=== PATIENT | female | born 1990 | race Caucasian/White ===

== ENCOUNTER 2018-03-25 13:26 | Emergency (ER) | payer MEDICAID, OTHER ==
[2018-03-25 13:37] VITALS: BP 99/64
--- NOTE | 2018-03-25 14:50 | XRAY Report ---
Procedure Date: 03/25/2018 Accession Number: [id number] / [id number] Procedure: XR - Ankle 3 View LT CPT Code: FULL RESULT: EXAM: LEFT ANKLE RADIOGRAPHY EXAM DATE: 03/25/2018 02:29 PM. CLINICAL HISTORY: Pain since a fall one day ago. COMPARISON: None. TECHNIQUE: 3 views. FINDINGS: Bones: Normal. No fractures or bone lesions. Joints: Normal. No effusion. No subluxations. The ankle mortise is normally aligned. Soft Tissues: Moderate edema over the lateral malleolus. IMPRESSION: No acute bony abnormality. RADIA
--- NOTE | 2018-03-25 14:59 | ED Physician Documentation ---
History of Present Illness - Stated complaint Stated Complaint: LEFT ANKLE SWELLING - Chief complaint Chief Complaint: Ext Problem - Additonal information Additional information: 27 y/o f on couamdin 10/29 mechanical heart valve / congenital heart was at bedside for her grandma on hospice and needed to salter out of the room and jumped over the bed and rolled her L ankle and hear a pop can bear weight slightly in the ER denies preg no other injury Review of Systems : denies: Now EGA Musculoskeletal: reports: Pain with weight bearing Endocrine: reports: Easy bruising / bleeding PD PAST MEDICAL HISTORY - Present Medications Home Medications: Ambulatory Orders Medication Instructions Recorded Confirmed Lisinopril 5 mg PO 03/25/18 03/25/18 Sertraline HCl [Zoloft] 100 mg PO 03/25/18 Warfarin [Coumadin] 5 mg PO 1400 03/25/18 03/25/18 - Allergies Allergies/Adverse Reactions: Allergies Allergy/AdvReac Type Severity Reaction Status Date / Time ceftriaxone [From Rocephin] Allergy Hives Verified 03/25/18 13:37 chlorhexidine Allergy Hives Verified 03/25/18 13:39 morphine Allergy Hives Verified 03/25/18 13:39 vancomycin Allergy Hives Verified 03/25/18 13:39 salmeterol [From Serevent] AdvReac Unknown Verified 03/25/18 13:38 PD ED PE NORMAL - Vitals Vital signs reviewed: Yes - Cardiac Cardiac: RRR - Respiratory Respiratory: No respiratory distress, Clear bilaterally - Extremities Extremities: Other (L ankle TTP lateral mall, no 5th MT or foot pain, no prox tib fib pain, MSV intact) Results - Vitals Vitals: Vital Signs - 24 hr 03/25/18 13:34 Temperature 36.4 C L Heart Rate 86 Respiratory 18 Rate Blood Pressure 99/64 O2 Saturation 96 Oxygen O2 Source Room air PD MEDICAL DECISION MAKING - Sepsis Event Vital Signs: Vital Signs - 24 hr 03/25/18 13:34 Temperature 36.4 C L Heart Rate 86 Respiratory 18 Rate Blood Pressure 99/64 O2 Saturation 96 Oxygen O2 Source Room air Departure - Departure Disposition: 01 Home, Self Care Clinical Impression: Ankle sprain Qualifiers: Encounter type: initial encounter Involved ligament of ankle: unspecified ligament Laterality: left Qualified Code(s): S93.402A - Sprain of unspecified ligament of left ankle, initial encounter Condition: Good Instructions: ED Sprain Ankle W X Ray Comments: The xray does not show any fractures. Recommend an LYNDSEY wrap ice and elevation for the swelling, crutches as needed to decrease weight bearing stress, and tylenol as needed for the pain It is always possible for a hairline crack not to be visible on initial xrays so if your ankle still hurts too much to bear weight in 2 weeks, please see your PMD for consideration of further imaging
== END 2018-03-25 15:12 | disposition home or self-care (01) ==
LOC: ED 13:26
DX: S93.402A Sprain of unspecified ligament of left ankle, initial encounter (principal); X50.1XXA Overexertion from prolonged static or awkward postures, initial encounter; Y93.39 Activity, other involving climbing, rappelling and jumping off; Z79.01 Long term (current) use of anticoagulants; Z95.2 Presence of prosthetic heart valve
CPT/HCPCS: 99283

== ENCOUNTER 2022-02-09 07:23 | Outpatient (CLI) | payer OTHER ==
[2022-02-09 11:44] LABS: INR 2.4 (0.8-1.2); PT - PROTHROMBIN TIME 27.1 secs (9.9-12.6)
== END 2022-02-09 07:24 | disposition home or self-care (01) ==
LOC: LAB.N 07:23
DX: Z79.01 Long term (current) use of anticoagulants (principal)
CPT/HCPCS: 36415; 85610

== ENCOUNTER 2022-02-18 08:18 | Outpatient (CLI) | payer OTHER ==
[2022-02-18 13:21] LABS: INR 2.2 (0.8-1.2); PT - PROTHROMBIN TIME 24.8 secs (9.9-12.6)
== END 2022-02-18 08:19 | disposition home or self-care (01) ==
LOC: LAB.N 08:18
DX: Z79.01 Long term (current) use of anticoagulants (principal)
CPT/HCPCS: 36415; 85610

== ENCOUNTER 2022-02-25 08:42 | Outpatient (CLI) | payer OTHER ==
[2022-02-25 11:44] LABS: INR 3.1 (0.8-1.2); PT - PROTHROMBIN TIME 34.8 secs (9.9-12.6)
== END 2022-02-25 08:43 | disposition home or self-care (01) ==
LOC: LAB.N 08:42
DX: Z79.01 Long term (current) use of anticoagulants (principal)
CPT/HCPCS: 36415; 85610

== ENCOUNTER 2025-05-24 19:05 | Inpatient (IN) ==
[2025-05-24 19:35] LABS: HCT - HEMATOCRIT 38.3 % (37.0-47.0); HGB - HEMOGLOBIN 12.0 g/dL (12.0-16.0); MEAN PLATELET VOLUME 9.4 fL (7.9-10.8); NRBC ABSOLUTE COUNT (AUTO) 0.00 x10^3/uL; NUCLEATED RED BLOOD CELLS AUTO 0.0 /100WBC; PLT - PLATELET COUNT 244 10^3/uL (130-450); RED CELL DISTRIBUTION WIDTH 15.0 % (12.0-15.0)
--- NOTE | 2025-05-24 19:39 | ED Physician Documentation ---
History of Present Illness Stated complaint Stated Complaint: COUGHING UP BLOOD Chief complaint Chief Complaint: Resp History obtained from History obtained from: Patient History of Present Illness Timing: Prior to arrival Additonal information Additional information: Patient is a 35-year-old female presenting to the emergency department with hemoptysis. Symptoms started this afternoon after she left [facility] for a ANGEL procedure secondary to atrial flutter. She was converted to normal sinus rhythm. She has past medical history remarkable for mechanical valve repair approximately twice and history of endocarditis twice. She notes this afternoon she began to develop chills and felt weak. She notes she is still coming off anesthesia as she had the procedure this afternoon. She began coughing up blood after leaving the hospital. She stated they want to watch her longer but she wanted to return home. Patient is on war farin chronically secondary to her mechanical valve. Unsure of what her last INR was today. She has shortness of breath on arrival and was brought in via EMS. She is speaking in full sentences but saturating at 86% on arrival. No hx of DVT/ PE. Meds/Allgy Home Medications Ambulatory Orders Medication Instructions Recorded Confirmed lisinopril 5 mg tablet 5 mg PO 03/25/18 03/25/18 sertraline 100 mg tablet (Zoloft) 100 mg PO 03/25/18 warfarin 5 mg tablet (Jantoven) 5 mg PO 1400 03/25/18 03/25/18 Allergies Allergies Allergy/AdvReac Type Severity Reaction Status Date / Time ceftriaxone (From Rocephin) Allergy Hives Verified 05/24/25 19:19 chlorhexidine Allergy Hives Verified 05/24/25 19:19 morphine Allergy Hives Verified 05/24/25 19:19 vancomycin Allergy Hives Verified 05/24/25 19:19 salmeterol (From Serevent) AdvReac Unknown Verified 05/24/25 19:19 PFSH Active Problems All Active Problems Ankle sprain (Acute) Medical History Medical History HTN (hypertension) GERD (gastroesophageal reflux disease) Endocarditis Atrial flutter Social History Social History (Updated 05/24/25 @ 19:23 by Mer Moon RN) Smoking Status: Never smoker Do you feel safe in your home environment?: Yes History of physical, verbal, emotional, or financial abuse?: No POLST Patient has POLST: No Exam Exam Vital Signs: Vital Signs x48h Temp Pulse Resp BP Pulse Ox O2 Flow Rate 05/24/25 20:48 97 18 109/69 96 3 05/24/25 19:20 3 05/24/25 19:20 91 L 3 05/24/25 19:15 38.8 C H 101 H 20 105/69 84 L Constitutional Patient appears fatigued, but speaking in full sentences in no acute distress. Results Vitals Vitals: Vital Signs - 24 hr 05/24/25 19:15 05/24/25 19:20 05/24/25 19:20 Temperature 38.8 C H Temperature Source Temporal Artery Scan Pulse Rate 101 H Respiratory Rate 20 Blood Pressure 105/69 O2 Saturation 84 L 91 L Oxygen Delivery Method Nasal Cannula O2 Source Room air Nasal cannula If not protocol: Oxygen Flow, liters/minute 3 3 Pain Intensity 6 05/24/25 20:20 05/24/25 20:48 Temperature Temperature Source Pulse Rate 97 Respiratory Rate 18 Blood Pressure 109/69 O2 Saturation 96 Oxygen Delivery Method O2 Source Nasal cannula If not protocol: Oxygen Flow, liters/minute 3 Pain Intensity 4 Oxygen O2 Source Nasal cannula Labs Labs: Laboratory Tests 05/24/25 05/24/25 05/24/25 19:25 19:26 19:26 WBC 9.6 RBC 4.54 Hgb 12.0 Hct 38.3 MCV 84.4 MCH 26.4 L MCHC 31.3 L RDW 15.0 Plt Count 244 MPV 9.4 Neut # (Auto) 8.7 H Lymph # (Auto) 0.3 L [place] # (Auto) 0.6 Eos # (Auto) 0.0 Baso # (Auto) 0.0 Absolute Nucleated RBC 0.00 Nucleated RBC % 0.0 PT 22.3 H INR 2.0 H Sodium 137 Potassium 3.7 Chloride 107 Carbon Dioxide 23 Anion Gap 7.0 BUN 20 Creatinine 0.8 Estimated GFR (MDRD) 82 L Glucose 109 H Lactic Acid Calcium 9.1 Magnesium 1.8 Total Bilirubin 0.6 AST 18 ALT 16 Alkaline Phosphatase 53 B-Natriuretic Peptide Cancelled 46 Total Protein 7.3 Albumin 4.5 Globulin 2.8 Albumin/Globulin Ratio 1.6 Urine Color Urine Clarity Urine pH Ur Specific [place] Urine Protein Urine Glucose (UA) Urine Ketones Urine Occult Blood Urine Nitrite Urine Bilirubin Urine Urobilinogen Ur Leukocyte Esterase Urine RBC Urine WBC Ur Squamous Epith Cells Urine Bacteria Ur Microscopic Review Urine Culture Comments Urine HCG, Qual Nasal Adenovirus (PCR) NOT DETECTED Nasal B. parapertussis DNA (PCR) NOT DETECTED Nasal Coronavir 229E PCR NOT DETECTED Nasal Coronavir HKU1 PCR NOT DETECTED Nasal Coronavir NL63 PCR NOT DETECTED Nasal Coronavir OC43 PCR NOT DETECTED Nasal Enterovir/Rhinovir PCR NOT DETECTED Nasal Influenza B PCR NOT DETECTED Nasal Influenza A PCR NOT DETECTED Nasal Parainfluen 1 PCR NOT DETECTED Nasal Parainfluen 2 PCR NOT DETECTED Nasal Parainfluen 3 PCR NOT DETECTED Nasal Parainfluen 4 PCR NOT DETECTED Nasal RSV (PCR) NOT DETECTED Nasal B.pertussis DNA PCR NOT DETECTED Nasal C.pneumoniae (PCR) NOT DETECTED Alek Human Metapneumo PCR NOT DETECTED Nasal M.pneumoniae (PCR) NOT DETECTED Nasal SARS-CoV-2 (PCR) NOT DETECTED 05/24/25 05/24/25 19:38 19:47 WBC RBC Hgb Hct MCV MCH MCHC RDW Plt Count MPV Neut # (Auto) Lymph # (Auto) [place] # (Auto) Eos # (Auto) Baso # (Auto) Absolute Nucleated RBC Nucleated RBC % PT INR Sodium Potassium Chloride Carbon Dioxide Anion Gap BUN Creatinine Estimated GFR (MDRD) Glucose Lactic Acid 1.2 Calcium Magnesium Total Bilirubin AST ALT Alkaline Phosphatase B-Natriuretic Peptide Total Protein Albumin Globulin Albumin/Globulin Ratio Urine Color YELLOW Urine Clarity CLEAR Urine pH 6.0 Ur Specific [place] 1.020 Urine Protein NEGATIVE Urine Glucose (UA) NEGATIVE Urine Ketones NEGATIVE Urine Occult Blood SMALL Urine Nitrite NEGATIVE Urine Bilirubin NEGATIVE Urine Urobilinogen 0.2 (NORMAL) Ur Leukocyte Esterase NEGATIVE Urine RBC 0-5 Urine WBC 0-3 Ur Squamous Epith Cells FEW Squamous Urine Bacteria None Seen Ur Microscopic Review INDICATED Urine Culture Comments NOT INDICATED Urine HCG, Qual NEGATIVE Nasal Adenovirus (PCR) Nasal B. parapertussis DNA (PCR) Nasal Coronavir 229E PCR Nasal Coronavir HKU1 PCR Nasal Coronavir NL63 PCR Nasal Coronavir OC43 PCR Nasal Enterovir/Rhinovir PCR Nasal Influenza B PCR Nasal Influenza A PCR Nasal Parainfluen 1 PCR Nasal Parainfluen 2 PCR Nasal Parainfluen 3 PCR Nasal Parainfluen 4 PCR Nasal RSV (PCR) Nasal B.pertussis DNA PCR Nasal C.pneumoniae (PCR) Alek Human Metapneumo PCR Nasal M.pneumoniae (PCR) Nasal SARS-CoV-2 (PCR) PD Medical Decision Making ED course Complexity details: reviewed old records and reviewed results ED course: Patient 35-year-old female presenting to the emergency department with hemoptysis that started today after she was discharged home from after a ANGEL procedure and a cardioversion from atrial flutter. Patient is on warfarin chronically for history of mechanical valve repair. Patient has history of congenital valve. She has no chest pain but is short of breath on arrival as she has saturating at 87% here in the ED and was started on 3 L nasal cannula improving to 93%. She has blood-streaked sputum here in the ED with an INR of 2.0. She denies any other hx or symptoms GI bleeding. EKG was normal sinus rhythm. No previous EKG to compare to. She has no leukocytosis patient meets sepsis criteria with her hypoxia and she is febrile on arrival. IV fluids were started and pending blood cultures and lactic acid at this time. She was started on levofloxacin given significant allergeries and she is on penicillin at baseline. CMP is unremarkable BNP unremarkable UA shows no signs of UTI test is negative respiratory swab returns negative as well. Blood cultures are pending at this time and lactic acid is within normal range. CXR: 1. Bibasilar opacities are suspicious for pneumonia, aspiration, or atelectasis. 2.Right-sided cardiac silhouette. Correlate for known situs inversus or dextrocardia versus labeling error. Discussed with cardiology Dr. Morgan who feels patient Does not need to return to their hospital for further workup at this timeHe feels given symptoms and workup at this time patient can be admitted to the facility. Additionally I have discussed with our hospitalist via telehealth Dr. Everett who would prefer patient have CT angiogram for evaluation after recent ANGEL, hypoxia and being on warfarin in the past. Patient is agreeable with this plan and she is sitting comfortably In the room still on 3 L nasal cannula. I signed out patient to on coming provider. Pending CTA at this time. Discharge Plan Discharge Prescriptions: No Action sertraline [Zoloft] 100 MG tablet 100 mg PO warfarin [Jantoven] 5 MG tablet 5 mg PO 1400 lisinopril 5 MG tablet 5 mg PO Print Language: Pakistani Stand Alone Forms: PCP List
--- OUTSIDE RECORDS SUMMARY | 2025-05-24 19:42 | EXTERNAL MEDICAL SUMMARY RPT | Continuity of Care Document ---
Author Organization [facility] Address [address] [place] [id number] Phone Care Team Providers Care Licensed Optical Dispenser Name Role Phone Unavailable Unavailable Latrell Hoover Unavailable Unavailable Allergies and Intolerances date description facility reaction severity 2025-04-08 13:00:24 [facility] (no reactio n) Mild 2025-04-23 13:55:28 [facility] (no reactio n) Mild 2025-04-08 13:00:24 [facility] (no reactio n) (no severity) 2025-04-23 13:55:28 [facility] (no reactio n) (no severity) 2025-04-08 13:00:24 [facility] (no reactio n) Moderate 2025-04-23 13:55:28 [facility] (no reactio n) Moderate 2025-04-08 13:00:24 [facility] (no reactio n) Moderate 2025-04-23 13:55:28 [facility] (no reactio n) Moderate 2025-04-08 13:00:24 [facility] (no reactio n) Severe 2025-04-23 13:55:28 [facility] (no reactio n) Severe 2025-04-08 13:00:24 [facility] (no reactio n) (no severity) 2025-04-23 13:55:28 [facility] (no reactio n) (no severity) Problems date description facility 2025-04-08 00:00 Electrocardiography showing paced rhythm with electrical capture [facility] 2025-04-24 00:00 Palpitations [facility] 2025-04-24 00:00 History of congenital heart dis ease [facility] 2025-04-24 00:00 Presence of cardiac pacemaker I [facility] Procedures date description facility 2025-04-23 00:00 X-ray of chest, single [facility] Results/Labs test date facility value unit notes Result panel 1 Specimen collection (procedure) (no date) [facility] (missing) (missing) (missing) Result panel 2 Specimen collection (procedure) (no date) [facility] (missing) (missing) (missing) Result panel 3 Specimen collection (procedure) (no date) [facility] (missing) (missing) (missing) Result panel 4 Specimen collection (procedure) (no date) [facility] (missing) (missing) (missing) Result panel 5 Specimen collection (procedure) (no date) [facility] (missing) (missing) (missing) Result panel 6 Specimen collection (procedure) (no date) [facility] (missing) (missing) (missing) Result panel 7 Specimen collection (procedure) (no date) [facility] (missing) (missing) (missing) Result panel 8 Specimen collection (procedure) (no date) [facility] (missing) (missing) (missing) Result panel 9 Specimen collection (procedure) (no date) [facility] (missing) (missing) (missing) Result panel 10 Specimen collection (procedure) (no date) [facility] (missing) (missing) (missing) Result panel 11 Specimen collection (procedure) (no date) [facility] (missing) (missing) (missing) Result panel 12 Specimen collection (procedure) (no date) [facility] (missing) (missing) (missing) Result panel 13 Specimen collection (procedure) (no date) [facility] (missing) (missing) (missing) Result panel 14 Specimen collection (procedure) (no date) [facility] (missing) (missing) (missing) Result panel 15 Specimen collection (procedure) (no date) [facility] (missing) (missing) (missing) Result panel 16 Specimen collection (procedure) (no date) [facility] (missing) (missing) (missing) Result panel 17 Specimen collection (procedure) (no date) [facility] (missing) (missing) (missing) Result panel 18 Specimen collection (procedure) (no date) [facility] (missing) (missing) (missing) Result panel 19 Specimen collection (procedure) (no date) [facility] (missing) (missing) (missing) Result panel 20 Specimen collection (procedure) (no date) [facility] (missing) (missing) (missing) Result panel 21 Specimen collection (procedure) (no date) [facility] (missing) (missing) (missing) Result panel 22 Specimen collection (procedure) (no date) [facility] (missing) (missing) (missing) Result panel 23 Specimen collection (procedure) (no date) [facility] (missing) (missing) (missing) Result panel 24 Specimen collection (procedure) (no date) [facility] (missing) (missing) (missing) Result panel 25 Specimen collection (procedure) (no date) [facility] (missing) (missing) (missing) Result panel 26 Specimen collection (procedure) (no date) [facility] (missing) (missing) (missing) Result panel 27 Specimen collection (procedure) (no date) [facility] (missing) (missing) (missing) Result panel 28 Specimen collection (procedure) (no date) [facility] (missing) (missing) (missing) Result panel 29 Specimen collection (procedure) (no date) [facility] (missing) (missing) (missing) Result panel 30 Specimen collection (procedure) (no date) [facility] (missing) (missing) (missing) Result panel 31 Specimen collection (procedure) (no date) [facility] (missing) (missing) (missing) Result panel 32 Specimen collection (procedure) (no date) [facility] (missing) (missing) (missing) Result panel 33 Specimen collection (procedure) (no date) [facility] (missing) (missing) (missing) Result panel 34 Specimen collection (procedure) (no date) [facility] (missing) (missing) (missing) Result panel 35 Specimen collection (procedure) (no date) [facility] (missing) (missing) (missing) Result panel 36 Specimen collection (procedure) (no date) [facility] (missing) (missing) (missing) Result panel 37 Specimen collection (procedure) (no date) [facility] (missing) (missing) (missing) Result panel 38 Specimen collection (procedure) (no date) [facility] (missing) (missing) (missing) Result panel 39 Specimen collection (procedure) (no date) [facility] (missing) (missing) (missing) Result panel 40 Specimen collection (procedure) (no date) [facility] (missing) (missing) (missing) Result panel 41 Specimen collection (procedure) (no date) [facility] (missing) (missing) (missing) Result panel 42 Specimen collection (procedure) (no date) [facility] (missing) (missing) (missing) Result panel 43 Specimen collection (procedure) (no date) [facility] (missing) (missing) (missing) Result panel 44 Specimen collection (procedure) (no date) [facility] (missing) (missing) (missing) Result panel 45 Specimen collection (procedure) (no date) [facility] (missing) (missing) (missing) Result panel 46 White blood cell count 2025-04-23 18:20:07 [facility] 7 .0 X10^3/uL (missing) Result panel 47 Red blood cell count 2025-04-23 18:20:07 [facility] 4.5 3 X10^6/uL (missing) Result panel 48 Hemoglobin 2025-04-23 18:20:07 [facility] 12.5 g/d L (missing) Result panel 49 Hematocrit 2025-04-23 18:20:07 [facility] 37.8 % (missing) Result panel 50 MCV (mean corpuscular volume ) determination 2025-04-23 18:20:07 [facility] 83.4 fL (mis sing) Result panel 51 Mean corpuscular hemoglobin (MCH) determination 2025-04-23 18:20:07 [facility] 27.6 PG (missing) Result panel 52 Mean corpuscular hemoglobin concentration (MCHC) determination 2025-04-23 18:20:07 [facility] 33.1 % (mis sing) Result panel 53 Red cell distribution width determination 2025-04-23 18:20:07 [facility] 15.5 % (mis sing) Result panel 54 Platelet count 2025-04-23 18:20:07 [facility] 273 X10^3/uL (missing) Result panel 55 Automated neutrophil % 2025-04-23 18:20:07 [facility] 6 8.9 % (missing) Result panel 56 Automated lymphocyte % 2025-04-23 18:20:07 [facility] 1 5.6 % (missing) Result panel 57 Automated monocyte % 2025-04-23 18:20:07 [facility] 10. 0 % (missing) Result panel 58 Automated eosinophil % 2025-04-23 18:20:07 [facility] 4 .7 % (missing) Result panel 59 Automated basophil % 2025-04-23 18:20:07 [facility] 0.8 % (missing) Result panel 60 Absolute neutrophil count 2025-04-23 18:20:07 [facility] l 4800 /uL (missing) Result panel 61 Absolute lymphocyte count 2025-04-23 18:20:07 [facility] 1100 /uL (missing) Result panel 62 Automated blood monocyte count 2025-04-23 18:20:07 [facility] spital 700 /uL (missing) Result panel 63 Automated eosinophil count 2025-04-23 18:20:07 [facility] 300 /uL (missing) Result panel 64 Automated basophil count 2025-04-23 18:20:07 [facility] 100 /uL (missing) Result panel 65 Serum prothrombin time 2025-04-23 18:20:07 [facility] 2 9.4 SECONDS (missing) Result panel 66 INR in Platelet poor plasma by Coagulation assay 2025-04-23 18:20:07 [facility] 2.7 (missing) (miss ing) Result panel 67 Thromboplastin time, partial (PTT); plasma or whole blood 2025-04-23 18:20:07 [facility] 42 SE CONDS (missing) Result panel 68 Creatine kinase [Enzymatic activity/volume] in Serum or Plasma 2025-04-23 18:20:07 [facility] 32 U/L ([facility]) Result panel 69 Natriuretic peptide.B prohormone N-Terminal [Mass/volume] in Serum or Plasma 2025-04-23 18:20:07 [facility] 359 pg/mL ([facility]) Result panel 70 Sodium [Moles/volume] in Serum or Plasma 2025-04-23 18:20:07 [facility] 138 mmol/L ([facility]) Result panel 71 Potassium [Moles/volume] in Serum or Plasma 2025-04-23 18:20:07 [facility] 4.6 mmol/L ([facility]) Result panel 72 Chloride [Moles/volume] in Serum or Plasma 2025-04-23 18:20:07 [facility] 107 mmol/L ([facility]) Result panel 73 Carbon dioxide, total [Moles/volume] in Serum or Plasma 2025-04-23 18:20:07 [facility] 21 mmol/L ([facility]) Result panel 74 Urea nitrogen [Mass/volume] in Serum or Plasma 2025-04-23 18:20:07 [facility] 21 mg/dL ([facility]) Result panel 75 Creatinine [Mass/volume] in Serum or Plasma 2025-04-23 18:20:07 [facility] 0.83 mg/dL ([facility]) Result panel 76 Glomerular filtration rate (GFR) estimation 2025-04-23 18:20:07 [facility] > 60 mL/min (missing) (missing) Result panel 77 BUN/creatinine ratio 2025-04-23 18:20:07 [facility] 25. 3 (missing) (missing) Result panel 78 Glucose [Mass/volume] in Ser um or Plasma 2025-04-23 18:20:07 [facility] 96 mg/dL (miss ing) Result panel 79 Calcium [Mass/volume] in Serum or Plasma 2025-04-23 18:20:07 [facility] 9.2 mg/dL [facility] Result panel 80 Magnesium [Mass/volume] in Serum or Plasma 2025-04-23 18:20:07 [facility] 2.2 mg/dL ([facility] Result panel 81 Bilirubin.total [Mass/volume ] in Serum or Plasma 2025-04-23 18:20:07 [facility] 0.4 mg/dL (missing) Result panel 82 Aspartate aminotransferase [Enzymatic activity/volume] in Serum or Plasma 2025-04-23 18:20:07 [facility] 30 IU/L [facility] Result panel 83 Alanine aminotransferase [Enzymatic activity/volume] in Serum or Plasma 2025-04-23 18:20:07 [facility] 23 IU/L [facility] Result panel 84 Alkaline phosphatase [Enzyma tic activity/volume] in Serum or Plasma 2025-04-23 18:20:07 [facility] 61 U/L (miss ing) Result panel 85 Protein total ser/plas 2025-04-23 18:20:07 [facility] 8 .2 g/dL (missing) Result panel 86 Albumin [Mass/volume] in Ser um or Plasma 2025-04-23 18:20:07 [facility] 4.7 g/dL (miss ing) Result panel 87 Globulin [Mass/volume] in Serum by calculation 2025-04-23 18:20:07 [facility] 3.5 g/dL (missing) Result panel 88 Albumin/Globulin [Mass Ratio] in Serum or Plasma 2025-04-23 18:20:07 [facility] 1.3 (miss ing) (missing) Result panel 89 Lipase [Enzymatic activity/volume] in Serum or Plasma 2025-04-23 18:20:07 [facility] 82 U/L (miss ing) Result panel 90 Basophils Percent Auto 2025-04-23 19:[address] [place] [address] 0.8 % (missing ) Monocytes Percent Auto 2025-04-23 19:[address] [place] [address] 10.0 % (missing ) Basophils Absolute Auto 2025-04-23 19: [facility] 100 /ul (missing ) Lymphocytes Absolute Auto 2025-04-23 19:[address] [place] [address] 1100 /ul (missing ) Hemoglobin 2025-04-23 19:[address] [place] [address] 12.5 g/dl (missing) Red Cell Distribution Width 2025-04-23 19:[address] [place] [address] 15.5 % (missing ) Lymphocytes Percent Auto 2025-04-23 19:[address] [place] [address] 15.6 % (missing ) INR 2025-04-23 19:[address] [place] [address] 2.7 (missin g) (missing) Mean Corpuscular Hemoglobin 2025-04-23 19:[address] [place] [address] 27.6 pg (missing ) Platelet Count 2025-04-23 19:[address] [place] [address] 273 x1 0 3/ul (missing) Prothrombin Time 2025-04-23:[address] [place] [address] 29.4 seconds Comment If patient is on warfarin Eosinophils Absolute Auto 2025-04-23:[address] [place] [address] 300 /ul (missing ) Mean Corpuscular HGB Conc 2025-04-23 19:[address] [place] [address] 33.1 % (missing ) Hematocrit 2025-04-23 19:[address] [place] [address] 37.8 % (missing) Red Blood Cell Count 2025-04-23 19:[address] [place] [address] 4.53 x10 6/ul (missing) Eosinophils Percent Auto 2025-04-23 19:[address] [place] [address] 4.7 % (missing ) PTT Partial Thromboplastin Daron 2025-04-23 19:[address] [place] [address] 42 seconds Co mment If patient is on warfarin Adjunctive to Coronary Thrombosis Heparin (0.1 - 0.3 UI/mL) = 40.8 - 62.7 seconds Heparin (0.3 - 0.7 UI/mL) = 62.7 - 106.4 seconds. Neutrophils Absolute Auto 2025-04-23:[address] [place] [address] 4800 /ul (missing ) Neutrophils Percent Auto 2025-04-23 19:[address] [place] [address] 68.9 % (missing ) White Blood Cell Count 2025-04-[address] [place] [address] 7.0 x10 3/ul (missing ) Monocytes Absolute Auto 2025-04-23 19:[address] [place] [address] 700 /ul (missing ) Mean Corpuscular Volume 2025-04-23 19:00 [facility] 83.4 fl (missing ) Result panel 91 Estimated Glomerular Filt Rate 2025-04-23 19:[address] [place] [address] > 60 ml/min Reported eGFR is based the CKD-EPI 2020 equation that does not use a race coefficient. An eGFR below 60 mL/min/1.73m2 suggests that some kidney damage has occurred, and indicative of chronic kidney disease if persisting greater than 3 months. An eGFR less than 15 is indicative of kidney failure. Bilirubin Total 2025-04-23 19:[address] [place] [address] 0.4 mg/dl (missing) Creatinine 2025-04-23 19:[address] [place] [address] 0.83 mg/dl (missing) Albumin Globulin Ratio 2025-04-23 19:[address] [place] [address] 1.3 (missing) (missing) Chloride 2025-04-23 19:[address] [place] [address] 107 mmol/l (missing) Sodium 2025-04-23 19:[address] [place] [address] 138 mmol/l Physician Instructions if pt has history of CHF Magnesium 2025-04-23 19:[address] [place] [address] 2.2 mg/dl Physician Instructions if pt has history of CHF Blood Urea Nitrogen 2025-04-23 19:[address] [place] [address] 21 mg/dl (missing) Carbon Dioxide 2025-04-23 19:[address] [place] [address] 21 mmol/l (missing) Alanine Aminotransferase 2025-04-23 19:[address] [place] [address] 23 iu/l (missing) BUN Creatinine Ratio 2025-04-23 19:[address] [place] [address] 25.3 (missing) (missing) Globulin 2025-04-23 19:[address] [place] [address] 3.5 g/dl (missing) Aspartate Aminotransferase 2025-04-23 19:[address] [place] [address] 30 iu/l (missing) Creatine Kinase 2025-04-23 19:[address] [place] [address] 32 u/l Physician Instructions if pt has history of CHF Potassium 2025-04-23 19:[address] [place] [address] 4.6 mmol/l (missing) Albumin 2025-04-23 19:[address] [place] [address] 4.7 g/dl (missing) Alkaline Phosphatase 2025-04-23 19:[address] [place] [address] 61 u/l (missing) Total Protein 2025-04-23 19:[address] [place] [address] 8.2 g/dl (missing) Lipase 2025-04-23 19:[address] [place] [address] 82 u/l Physician Instructions if pt has history of CHF Calcium 2025-04-23 19:05 [facility] 9.2 mg/dl (missing) Glucose 2025-04-23 19:05 [facility] 96 mg/dl (missing) Result panel 92 Estimated Glomerular Filt Rate 2025-04-23 19:13 [facility] > 60 ml/min Reported eGFR is based the CKD-EPI 2020 equation that does not use a race coefficient. An eGFR below 60 mL/min/1.73m2 suggests that some kidney damage has occurred, and indicative of chronic kidney disease if persisting greater than 3 months. An eGFR less than 15 is indicative of kidney failure. Troponin I 2025-04-23:13 [facility] 0.018 ng/ml Social History date description facility 2025-04-08 00:00 Never smoked tobacco (finding) [facility] Vital Signs date measurement value units 2025-04-08 00:00 BMI 25.7 kg/m2 2025-04-08 00:00 BP_diastolic 55 mmHg 2025-04-08 00:00 BP_systolic 106 mmHg 2025-04-08 00:00 heart_rate 72 /min 2025-04-08 00:00 height_metric 160.02 cm 2025-04-08 00:00 height_standard 63 in 2025-04-08 00:00 o2_saturation 97 % 2025-04-08 00:00 respiration_rate 16 /min 2025-04-08 00:00 temperature_metric 36.56 C 2025-04-08 00:00 temperature_standard 97.8 F 2025-04-08 00:00 weight_metric 65.77 kg 2025-04-08 00:00 weight_standard 145 lb 2025-04-23 00:00 BMI 25.7 kg/m2 2025-04-23 00:00 BP_diastolic 71 mmHg 2025-04-23 00:00 BP_systolic 116 mmHg 2025-04-23 00:00 height_metric 160.02 cm 2025-04-23 00:00 height_standard 63 in 2025-04-23 00:00 temperature_metric 37.06 C 2025-04-23 00:00 temperature_standard 98.7 F 2025-04-23 00:00 weight_metric 65.77 kg 2025-04-23 00:00 weight_standard 145 lb 2025-04-24 00:00 heart_rate 71 /min 2025-04-24 00:00 o2_saturation 95 % 2025-04-24 00:00 respiration_rate 20 /min
[2025-05-24 19:47] LABS: INR 2.0 (0.8-1.2); PT - PROTHROMBIN TIME 22.3 secs (9.9-12.6)
[2025-05-24 19:49] LABS: ALT ALANINE AMINOTRANSFERASE 16.0 IU/L (10-60); AST ASPARTATE AMINOTRANSFERASE 18.0 IU/L (10-42); BUN - BLOOD UREA NITROGEN 20.0 mg/dL (6-20); CARBON DIOXIDE - CO2 23.0 mmol/L (21-32); CREATININE 0.8 mg/dL (0.6-1.3); GFR - MDRD 82.0 (>89)
[2025-05-24 20:04] LABS: GLUCOSE, URINE (UA) NEGATIVE (NEGATIVE); KETONES,URINE (UA) NEGATIVE (NEGATIVE); OCCULT BLOOD,URINE SMALL (NEGATIVE)
[2025-05-24 20:05] LABS: HCG UR QUAL NEGATIVE
[2025-05-24 20:15] LABS: SQUAMOUS EPITHELIAL CELL,UR FEW Squamous (<= Few)
[2025-05-24] MEDS: ACETAMINOPHEN 325 MG TABLET PO STA (20:20)
[2025-05-24] MEDS: SODIUM CHLORIDE 0.9% 1,000 ML IV STA (20:21)
--- NOTE | 2025-05-24 20:21 | XRAY Report ---
PROCEDURE: XR Chest 2V INDICATIONS: cough, hemoptysis, sob TECHNIQUE: 2 views of the chest were acquired. COMPARISON: None. FINDINGS: Surgical changes and devices: A cardiac pacemaker is seen with pulse generator in the right chest. Sternotomy wires and prosthetic heart valve are present. Lungs and pleura: No pleural effusions or pneumothorax. Bibasilar opacities.. Mediastinum: Right-sided cardiac shadow. Bones and chest wall: No suspicious bony lesions. Overlying soft tissues appear unremarkable. IMPRESSION: 1.Bibasilar opacities are suspicious for pneumonia, aspiration, or atelectasis. 2.Right-sided cardiac silhouette. Correlate for known situs inversus or dextrocardia versus labeling error. Reviewed by: Aroldo Oliver MD on 05/24/2025 8:19 PM PDT Approved by: Aroldo Oliver MD on 05/24/2025 8:19 PM PDT Station ID: [id number]
[2025-05-24 21:16] LABS: B. PARAPERTUSSIS- RESP PCR PAN NOT DETECTED; B. PERTUSSIS- RESP PCR PANEL NOT DETECTED; C. PNEUMONIAE- RESP PCR PANEL NOT DETECTED; CORONAVIRUS 229E-RESP PCR NOT DETECTED; CORONAVIRUS HKU1-RESP PCR NOT DETECTED; CORONAVIRUS NL63-RESP PCR NOT DETECTED; CORONAVIRUS OC43-RESP PCR NOT DETECTED; HUMAN METAPNEUMOVIRUS NOT DETECTED; INFLUENZA A- RESP PCR PANEL NOT DETECTED; INFLUENZA B - RESP PCR PANEL NOT DETECTED; M. PNEUMONIAE- RESP PCR PANEL NOT DETECTED; PARAINFLUENZA VIRUS 1 NOT DETECTED; PARAINFLUENZA VIRUS 2 NOT DETECTED; PARAINFLUENZA VIRUS 4 NOT DETECTED; RHINOVIRUS/ENTEROVIRUS NOT DETECTED; RSV- RESP PCR PANEL NOT DETECTED; SARS-CoV-2 -RESP PCR PANEL NOT DETECTED
--- NOTE | 2025-05-24 22:39 | CT Report ---
PROCEDURE: CT Angio Chest INDICATIONS: sob hemoptysis CONTRAST: 70cc omni 300 intravenous TECHNIQUE: After the administration of intravenous contrast, 2 mm axial images were acquired from the pulmonary apices to the posterior costophrenic angles during the arterial phase. In addition, 1 mm lung kernel and 5 mm soft tissue kernel reconstructions were performed. 3-dimensional coronal oblique maximum intensity projection (MIP) reformats, 8 mm axial MIP, and 5 mm coronal and sagittal MPR reformats were then performed through the thorax. For radiation dose reduction, the following was used: automated exposure control, adjustment of mA and/or kV according to patient size. COMPARISON: Chest radiograph 05/24/2025 FINDINGS: Image quality: Excellent. Large vessels: No filling defects within the opacified pulmonary arteries, accounting for motion and contrast timing. No evidence of acute aortic syndrome or aortic aneurysm. Lungs and pleura: Consolidative opacities in the right lower lobe. Bandlike opacities are seen in the left midlung. No pleural effusions. No pneumothorax. No suspicious pulmonary nodules which require follow up. Mediastinum: Dextrocardia. Heart is enlarged. A prosthetic mitral valve is noted. 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 No pericardial effusion. No mediastinal adenopathy by size criteria. Chest wall and lower neck: Thyroid is unremarkable. No axillary or supraclavicular adenopathy by size. A cardiac pacemaker is seen with pulse generator in the right chest. Bones: No aggressive osseous abnormality. Upper Abdomen: Prominent midline liver spanning the upper abdomen. Multiple splenules in the left upper quadrant. Inferior vena cava drains into the azygos vein. IMPRESSION: 1.No acute pulmonary embolus. 2.Right lower lobe opacities are suspicious for pneumonia or aspiration. Bandlike opacities in the left lung have a more chronic appearance and may represent scarring. 3.Heterotaxy syndrome with right-sided heart. Reviewed by: Aroldo Oliver MD on 05/24/2025 10:38 PM PDT Approved by: Aroldo Oliver MD on 05/24/2025 10:38 PM PDT Station ID: [id number]
--- NOTE | 2025-05-24 23:06 | ED Physician Documentation ---
ED Addendum Addendum Addendum: Patient endorsed to me at 11pm shift change pending admission for pneumonia with hypoxic features. patient is stable with antibiotics in place. Disposition admit Condition stable Impression 1. pneumonia 2. hypoxia Discharge Plan Discharge Patient Disposition: [facility] DC/Xfer Condition: Fair Clinical Impression: Cough with hemoptysis, Pneumonia, Hypoxia Prescriptions: No Action sertraline [Zoloft] 100 MG tablet 100 mg PO warfarin [Jantoven] 5 MG tablet 5 mg PO 1400 lisinopril 5 MG tablet 5 mg PO Print Language: [place]ian
--- NOTE | 2025-05-25 01:00 | HISTORY & PHYSICAL EXAMINATION ---
Chief Complaint Chief Complaint Chief Complaint: Cough, Bloody sputum History of Present Illness History Obtained From Exam Limitations: Telemedicine encounter History of Present Illness HPI Comment/Other: Patient is 35 y/o F with complex cardiac history of prior endocarditis and on PENVK daily , history of Mechanical valve replaced many years ago and currently on warfarin with target INR of 2.5 -3.5, history of Migraines and had atrial flutter and patient underwent for elective cardioversion at [facility], upon returning from procedure, during mid way drive patient started coughing, and bloody sputum streaks of blood mixed with sputum and produtive cough with low grade temperature, and feeling of fatigue and tiredness. patient do not remember any aspiration event during [facility]. patient presented to ER and found to have hypoxia and RLL pneumonia, hospitalist is asked to admit patient Meds/Allgy Home Medications Ambulatory Orders Medication Instructions Recorded Confirmed lisinopril 5 mg tablet 5 mg PO DAILY 03/25/1805/25 sertraline 100 mg tablet (Zoloft) 100 mg PO Q24H 03/2505/25/25 warfarin 5 mg tablet (Jantoven) 5 mg PO 1400 03/25/18 05/25/25 metoprolol succinate 50 mg 50 mg PO Q12H 05/25/2504/28 tablet,extended release 24 hr topiramate 50 mg tablet 50 mg PO BID 05/25/25 Allergies Allergies Allergy/AdvReac Type Severity Reaction Status Date / Time ceftriaxone (From Rocephin) Allergy Hives Verified 05/24/25 19:19 chlorhexidine Allergy Hives Verified 05/24/25 19:19 morphine Allergy Hives Verified 05/24/25 19:19 vancomycin Allergy Hives Verified 05/24/25 19:19 salmeterol (From Serevent) AdvReac Unknown Verified 05/24/25 19:19 PFSH Active Problems All Active Problems (Updated 05/24/25 @ 23:49 by Francisca Espinoza MD) Hypoxia (Acute) Pneumonia (Acute) Cough with hemoptysis (Acute) Mechanical heart valve present (Acute) Right lower lobe pneumonia (Acute) Ankle sprain (Acute) Medical History Medical History (Updated 05/24/25 @ 23:49 by Francisca Espinoza MD) HTN (hypertension) GERD (gastroesophageal reflux disease) Endocarditis Atrial flutter Social History Social History Smoking Status: Never smoker Do you feel safe in your home environment?: Yes History of physical, verbal, emotional, or financial abuse?: No POLST Patient has POLST: No Review of Systems Constitutional Reports: Fatigue, Malaise and Weakness Eyes Denies: Blurry vision or Light sensitivity Ears, nose, mouth, and throat Denies: Ear discharge, Hearing loss, Post nasal drip or Neck pain Cardiovascular Reports: palpitations and shortness of breath with exertion; Denies: Irregular heart rate or chest pain Respiratory Reports: Shortness of breath, Cough, Sputum production and Change in phlegm color; Denies: Wheezing, Apnea or Snoring Gastrointestinal Denies: Abdominal pain or Abdominal distention Genitourinary Denies: Painful urination or Urinary frequency Musculoskeletal Denies: Back pain or Neck pain Neurological Denies: General weakness, Focal weakness or Weakness in extremities Endocrine Reports: Fatigue Allergic/Immunologic Denies: Wheezing Exam Exam Vital Signs: Vital Signs x48h Temp Pulse Resp BP Pulse Ox O2 Flow Rate 05/24/25 20:48 97 18 109/69 96 3 05/24/25 19:20 3 05/24/25 19:20 91 L 3 05/24/25 19:15 38.8 C H 101 H 20 105/69 84 L Exam was conducted by tele medicine RN at bedside Gen - Hypoxic on 2-3 L AAOX 3 as per RN Pulmonary - Reduced air entry in RLL , no rhonchi, no wheezing as per engineer [facility] laboratory - RRR, no Murmer no gallop Neuro - Moves all extremities, AAOX 3 non focal exam Conclusion/Plan Problem List (1) Mechanical heart valve present: (2) Right lower lobe pneumonia: (3) HTN (hypertension): Plan - Admit to hospital - Bloody sputum is in setting of Pneumonia - Patient takes Warfarin 7.5 mg on Wednesday and Wednesday rest of week 5 mg daily (5 days in week) - INR is managed by outpatient PCP - Target INR is 2.5-3.5 today subthereapeutic, however considering histroy of bloody sputum start Lovenox - Offered heparin drip patient refused it , - No evidence of active bleeding on CTA chest, CT findings are consistent with Pneumonia - Pneumonia is causing acute hypoxic respiratory failure - Continue current care with supportive oxygen, - Continue Levaquin - Last dose of Lovenox was yesterday at cardioversion - Will continue 1 mg/kg BID - Hold Warfarin for now , will need lovenox bridging - monitor CBC daily, unlikely to cause bleeding complications, as Pneumonia explains bloody sputum - D/w Sandeep in detail - Full code Lab Results 05/24/25 19:26 05/24/25 19:26
--- NOTE | 2025-05-25 07:26 | ED Physician Documentation ---
ED Addendum Addendum Addendum: No acute events overnight. Patient boarded in the ER overnight due to [facility] staff shortages on [facility] but now should be able to moved to the floor this morning. Dr. Saldivar to see. Condition stable Disposition admit Impression 1 hemoptysis Discharge Plan Discharge Patient Disposition: [facility] DC/Xfer Condition: Fair Clinical Impression: Cough with hemoptysis, Pneumonia, Hypoxia Prescriptions: No Action sertraline [Zoloft] 100 MG tablet 100 mg PO Q24H warfarin [Jantoven] 5 MG tablet 5 mg PO 1400 lisinopril 5 MG tablet 5 mg PO DAILY metoprolol succinate 50 mg tablet extended release 24 hr 50 mg PO Q12H topiramate 50 mg tablet 50 mg PO BID Print Language: Tanzanian
[2025-05-25 07:37] LABS: INR 2.3 (0.8-1.2); PT - PROTHROMBIN TIME 25.5 secs (9.9-12.6)
[2025-05-25] MEDS: ENOXAPARIN 80 MG/0.8 ML SYRINGE SUBQ SCH (14:14)
--- OUTSIDE RECORDS SUMMARY | 2025-05-25 16:29 | EXTERNAL MEDICAL SUMMARY RPT | Continuity of Care Document ---
Author Organization [facility] Address [address] [place] [id number] Phone Care Team Providers Care Lunchroom Aide Name Role Phone Unavailable Unavailable Latrell Hoover Unavailable Unavailable Allergies and Intolerances date description facility reaction severity 2025-04-08 13:00:24 [facility] (no reactio n) Mild 2025-04-23 13:55:28 [facility] (no reactio n) Mild 2025-04-08 13:00:24 [facility] (no reactio n) (no severity) 2025-04-23 13:55:28 [facility] (no reactio n) (no severity) 2025-04-08 13:00:24 [facility] (no reactio n) Moderate 2025-04-23 13:55:28 [facility] (no reactio n) Moderate 2025-04-08 13:00:24 [facility] (no reactio n) Moderate 2025-04-23 13:55:28 [facility] (no reactio n) Moderate 2025-04-08 13:00:24 [facility] (no reactio n) Severe 2025-04-23 13:55:28 [facility] (no reactio n) Severe 2025-04-08 13:00:24 [facility] (no reactio n) (no severity) 2025-04-23 13:55:28 [facility] (no reactio n) (no severity) Problems date description facility 2025-04-08 00:00 Electrocardiography showing paced rhythm with electrical capture [facility] 2025-04-24 00:00 Palpitations [facility] 2025-04-24 00:00 History of congenital heart dis ease [facility] 2025-04-24 00:00 Presence of cardiac pacemaker I [facility] Procedures date description facility 2025-04-23 00:00 X-ray of chest, single view [facility] Results/Labs test date facility value unit notes Result panel 1 Specimen collection (procedure) (no date) [facility] (missing) (missing) (missing) Result panel 2 Specimen collection (procedure) (no date) [facility] (missing) (missing) (missing) Result panel 3 Specimen collection (procedure) (no date) [facility] (missing) (missing) (missing) Result panel 4 Specimen collection (procedure) (no date) [facility] (missing) (missing) (missing) Result panel 5 Specimen collection (procedure) (no date) [facility] (missing) (missing) (missing) Result panel 6 Specimen collection (procedure) (no date) [facility] (missing) (missing) (missing) Result panel 7 Specimen collection (procedure) (no date) [facility] (missing) (missing) (missing) Result panel 8 Specimen collection (procedure) (no date) [facility] (missing) (missing) (missing) Result panel 9 Specimen collection (procedure) (no date) [facility] (missing) (missing) (missing) Result panel 10 Specimen collection (procedure) (no date) [facility] (missing) (missing) (missing) Result panel 11 Specimen collection (procedure) (no date) [facility] (missing) (missing) (missing) Result panel 12 Specimen collection (procedure) (no date) [facility] (missing) (missing) (missing) Result panel 13 Specimen collection (procedure) (no date) [facility] (missing) (missing) (missing) Result panel 14 Specimen collection (procedure) (no date) [facility] (missing) (missing) (missing) Result panel 15 Specimen collection (procedure) (no date) [facility] (missing) (missing) (missing) Result panel 16 Specimen collection (procedure) (no date) [facility] (missing) (missing) (missing) Result panel 17 Specimen collection (procedure) (no date) [facility] (missing) (missing) (missing) Result panel 18 Specimen collection (procedure) (no date) [facility] (missing) (missing) (missing) Result panel 19 Specimen collection (procedure) (no date) [facility] (missing) (missing) (missing) Result panel 20 Specimen collection (procedure) (no date) [facility] (missing) (missing) (missing) Result panel 21 Specimen collection (procedure) (no date) [facility] (missing) (missing) (missing) Result panel 22 Specimen collection (procedure) (no date) [facility] (missing) (missing) (missing) Result panel 23 Specimen collection (procedure) (no date) [facility] (missing) (missing) (missing) Result panel 24 Specimen collection (procedure) (no date) [facility] (missing) (missing) (missing) Result panel 25 Specimen collection (procedure) (no date) [facility] (missing) (missing) (missing) Result panel 26 Specimen collection (procedure) (no date) [facility] (missing) (missing) (missing) Result panel 27 Specimen collection (procedure) (no date) [facility] (missing) (missing) (missing) Result panel 28 Specimen collection (procedure) (no date) [facility] (missing) (missing) (missing) Result panel 29 Specimen collection (procedure) (no date) [facility] (missing) (missing) (missing) Result panel 30 Specimen collection (procedure) (no date) [facility] (missing) (missing) (missing) Result panel 31 Specimen collection (procedure) (no date) [facility] (missing) (missing) (missing) Result panel 32 Specimen collection (procedure) (no date) [facility] (missing) (missing) (missing) Result panel 33 Specimen collection (procedure) (no date) [facility] (missing) (missing) (missing) Result panel 34 Specimen collection (procedure) (no date) [facility] (missing) (missing) (missing) Result panel 35 Specimen collection (procedure) (no date) [facility] (missing) (missing) (missing) Result panel 36 Specimen collection (procedure) (no date) [facility] (missing) (missing) (missing) Result panel 37 Specimen collection (procedure) (no date) [facility] (missing) (missing) (missing) Result panel 38 Specimen collection (procedure) (no date) [facility] (missing) (missing) (missing) Result panel 39 Specimen collection (procedure) (no date) [facility] (missing) (missing) (missing) Result panel 40 Specimen collection (procedure) (no date) [facility] (missing) (missing) (missing) Result panel 41 Specimen collection (procedure) (no date) [facility] (missing) (missing) (missing) Result panel 42 Specimen collection (procedure) (no date) [facility] (missing) (missing) (missing) Result panel 43 Specimen collection (procedure) (no date) [facility] (missing) (missing) (missing) Result panel 44 Specimen collection (procedure) (no date) [facility] (missing) (missing) (missing) Result panel 45 Specimen collection (procedure) (no date) [facility] (missing) (missing) (missing) Result panel 46 White blood cell count 2025-04-23 18:20:07 [facility] 7 .0 X10^3/uL (missing) Result panel 47 Red blood cell count 2025-04-23 18:20:07 [facility] 4.5 3 X10^6/uL (missing) Result panel 48 Hemoglobin 2025-04-23 18:20:07 [facility] 12.5 g/d L (missing) Result panel 49 Hematocrit 2025-04-23 18:20:07 [facility] 37.8 % (missing) Result panel 50 MCV (mean corpuscular volume ) determination 2025-04-23 18:20:07 [facility] 83.4 fL (mis sing) Result panel 51 Mean corpuscular hemoglobin (MCH) determination 2025-04-23 18:20:07 [facility] 27.6 PG (missing) Result panel 52 Mean corpuscular hemoglobin concentration (MCHC) determination 2025-04-23 18:20:07 [facility] 33.1 % (mis sing) Result panel 53 Red cell distribution width determination 2025-04-23 18:20:07 [facility] 15.5 % (mis sing) Result panel 54 Platelet count 2025-04-23 18:20:07 [facility] 273 X10^3/uL (missing) Result panel 55 Automated neutrophil % 2025-04-23 18:20:07 [facility] 6 8.9 % (missing) Result panel 56 Automated lymphocyte % 2025-04-23 18:20:07 [facility] 1 5.6 % (missing) Result panel 57 Automated monocyte % 2025-04-23 18:20:07 [facility] 10. 0 % (missing) Result panel 58 Automated eosinophil % 2025-04-23 18:20:07 [facility] 4 .7 % (missing) Result panel 59 Automated basophil % 2025-04-23 18:20:07 [facility] 0.8 % (missing) Result panel 60 Absolute neutrophil count 2025-04-23 18:20:07 [facility] l 4800 /uL (missing) Result panel 61 Absolute lymphocyte count 2025-04-23 18:20:07 [facility] 1100 /uL (missing) Result panel 62 Automated blood monocyte count 2025-04-23 18:20:07 [facility] 700 /uL (missing) Result panel 63 Automated eosinophil count 2025-04-23 18:20:07 [facility] 300 /uL (missing) Result panel 64 Automated basophil count 2025-04-23 18:20:07 [facility] 100 /uL (missing) Result panel 65 Serum prothrombin time 2025-04-23 18:20:07 [facility] 2 9.4 SECONDS (missing) Result panel 66 INR in Platelet poor plasma by Coagulation assay 2025-04-23 18:20:07 [facility] 2.7 (missing) (miss ing) Result panel 67 Thromboplastin time, partial (PTT); plasma or whole blood 2025-04-23 18:20:07 [facility] 42 SE CONDS (missing) Result panel 68 Creatine kinase [Enzymatic activity/volume] in Serum or Plasma 2025-04-23 18:20:07 [facility] 32 U/L ([facility] ing) Result panel 69 Natriuretic peptide.B prohormone N-Terminal [Mass/volume] in Serum or Plasma 2025-04-23 18:20:07 [facility] 359 pg/mL ([facility]) Result panel 70 Sodium [Moles/volume] in Serum or Plasma 2025-04-23 18:20:07 [facility] 138 mmol/L ([facility]) Result panel 71 Potassium [Moles/volume] in Serum or Plasma 2025-04-23 18:20:07 [facility] 4.6 mmol/L ([facility]) Result panel 72 Chloride [Moles/volume] in Serum or Plasma 2025-04-23 18:20:07 [facility] 107 mmol/L ([facility]) Result panel 73 Carbon dioxide, total [Moles/volume] in Serum or Plasma 2025-04-23 18:20:07 [facility] 21 mmol/L ([facility]) Result panel 74 Urea nitrogen [Mass/volume] in Serum or Plasma 2025-04-23 18:20:07 [facility] 21 mg/dL ([facility]) Result panel 75 Creatinine [Mass/volume] in Serum or Plasma 2025-04-23 18:20:07 [facility] 0.83 mg/dL ([facility]) Result panel 76 Glomerular filtration rate (GFR) estimation 2025-04-23 18:20:07 [facility] > 60 mL/min (missing) (missing) Result panel 77 BUN/creatinine ratio 2025-04-23 18:20:07 [facility] 25. 3 (missing) (missing) Result panel 78 Glucose [Mass/volume] in Ser um or Plasma 2025-04-23 18:20:07 [facility] 96 mg/dL (miss ing) Result panel 79 Calcium [Mass/volume] in Serum or Plasma 2025-04-23 18:20:07 [facility] 9.2 [facility] Result panel 80 Magnesium [Mass/volume] in Serum or Plasma 2025-04-23 18:20:07 [facility] 2.2 mg/dL ([facility]) Result panel 81 Bilirubin.total [Mass/volume ] in Serum or Plasma 2025-04-23 18:20:07 [facility] 0.4 mg/dL (missing) Result panel 82 Aspartate aminotransferase [Enzymatic activity/volume] in Serum or Plasma 2025-04-23 18:20:07 [facility] 30 IU/L ([facility]) Result panel 83 Alanine aminotransferase [Enzymatic activity/volume] in Serum or Plasma 2025-04-23 18:20:07 [facility] 23 IU/L ([facility]) Result panel 84 Alkaline phosphatase [Enzyma tic activity/volume] in Serum or Plasma 2025-04-23 18:20:07 [facility] 61 U/L (miss ing) Result panel 85 Protein total ser/plas 2025-04-23 18:20:07 [facility] 8 .2 g/dL (missing) Result panel 86 Albumin [Mass/volume] in Ser um or Plasma 2025-04-23 18:20:07 [facility] 4.7 g/dL (miss ing) Result panel 87 Globulin [Mass/volume] in Serum by calculation 2025-04-23 18:20:07 [facility] 3.5 g/dL (missing) Result panel 88 Albumin/Globulin [Mass Ratio] in Serum or Plasma 2025-04-23 18:20:07 [facility] 1.3 (miss ing) (missing) Result panel 89 Lipase [Enzymatic activity/volume] in Serum or Plasma 2025-04-23 18:20:07 [facility] 82 U/L (miss ing) Result panel 90 Basophils Percent Auto 2025-04-23 19:[address] [place] [address] 0.8 % (missing ) Monocytes Percent Auto 2025-04-23 19:[address] [place] [address] 10.0 % (missing ) Basophils Absolute Auto 2025-04-23 19: [facility] 100 /ul (missing ) Lymphocytes Absolute Auto 2025-04-23 19:[address] [place] [address] 1100 /ul (missing ) Hemoglobin 2025-04-23 19:[address] [place] [address] 12.5 g/dl (missing) Red Cell Distribution Width 2025-04-23 19:[address] [place] [address] 15.5 % (missing ) Lymphocytes Percent Auto 2025-04-23 19:[address] [place] [address] 15.6 % (missing ) INR 2025-04-23 19:[address] [place] [address] 2.7 (missin g) (missing) Mean Corpuscular Hemoglobin 2025-04-23 19:[address] [place] [address] 27.6 pg (missing ) Platelet Count 2025-04-23 19:[address] [place] [address] 273 x1 0 3/ul (missing) Prothrombin Time 2025-04-23:[address] [place] [address] 29.4 seconds Comment If patient is on warfarin Eosinophils Absolute Auto 2025-04-23:[address] [place] [address] 300 /ul (missing ) Mean Corpuscular HGB Conc 2025-04-[address] [place] [address] 33.1 % (missing ) Hematocrit 2025-04-23 19:[address] [place] [address] 37.8 % (missing) Red Blood Cell Count 2025-04-23 19:[address] [place] [address] 4.53 x10 6/ul (missing) Eosinophils Percent Auto 2025-04-23 19:[address] [place] [address] 4.7 % (missing ) PTT Partial Thromboplastin Daron 2025-04-23 19:[address] [place] [address] 42 seconds Co mment If patient is on warfarin Adjunctive to Coronary Thrombosis Heparin (0.1 - 0.3 UI/mL) = 40.8 - 62.7 seconds Heparin (0.3 - 0.7 UI/mL) = 62.7 - 106.4 seconds. Neutrophils Absolute Auto 2025-04-23:[address] [place] [address] 4800 /ul (missing ) Neutrophils Percent Auto 2025-04-[address] [place] [address] 68.9 % (missing ) White Blood Cell Count 2025-04-23 19:[address] [place] [address] 7.0 x10 3/ul (missing ) Monocytes Absolute Auto 2025-04-23 19:[address] [place] [address] 700 /ul (missing ) Mean Corpuscular Volume 2025-04-23 19:00 [facility] 83.4 fl (missing ) Result panel 91 Estimated Glomerular Filt Rate 2025-04-23 19:[address] [place] [address] > 60 ml/min Reported eGFR is based the CKD-EPI 2020 equation that does not use a race coefficient. An eGFR below 60 mL/min/1.73m2 suggests that some kidney damage has occurred, and indicative of chronic kidney disease if persisting greater than 3 months. An eGFR less than 15 is indicative of kidney failure. Bilirubin Total 2025-04-23 19:[address] [place] [address] 0.4 mg/dl (missing) Creatinine 2025-04-23 19:[address] [place] [address] 0.83 mg/dl (missing) Albumin Globulin Ratio 2025-04-23 19:[address] [place] [address] 1.3 (missing) (missing) Chloride 2025-04-23 19:[address] [place] [address] 107 mmol/l (missing) Sodium 2025-04-23 19:[address] [place] [address] 138 mmol/l Physician Instructions if pt has history of CHF Magnesium 2025-04-23 19:[address] [place] [address] 2.2 mg/dl Physician Instructions if pt has history of CHF Blood Urea Nitrogen 2025-04-23 19:[address] [place] [address] 21 mg/dl (missing) Carbon Dioxide 2025-04-23 19:[address] [place] [address] 21 mmol/l (missing) Alanine Aminotransferase 2025-04-23 19:[address] [place] [address] 23 iu/l (missing) BUN Creatinine Ratio 2025-04-23 19:[address] [place] [address] 25.3 (missing) (missing) Globulin 2025-04-23 19:[address] [place] [address] 3.5 g/dl (missing) Aspartate Aminotransferase 2025-04-23 19:[address] [place] [address] 30 iu/l (missing) Creatine Kinase 2025-04-23 19:[address] [place] [address] 32 u/l Physician Instructions if pt has history of CHF Potassium 2025-04-23 19:[address] [place] [address] 4.6 mmol/l (missing) Albumin 2025-04-23 19:[address] [place] [address] 4.7 g/dl (missing) Alkaline Phosphatase 2025-04-23 19:[address] [place] [address] 61 u/l (missing) Total Protein 2025-04-23 19:[address] [place] [address] 8.2 g/dl (missing) Lipase 2025-04-23 19:[address] [place] [address] 82 u/l Physician Instructions if pt has history of CHF Calcium 2025-04-23 19:05 [facility] 9.2 mg/dl (missing) Glucose 2025-04-23 19:05 [facility] 96 mg/dl (missing) Result panel 92 Estimated Glomerular Filt Rate 2025-04-23 19:13 [facility] > 60 ml/min Reported eGFR is based the CKD-EPI 2020 equation that does not use a race coefficient. An eGFR below 60 mL/min/1.73m2 suggests that some kidney damage has occurred, and indicative of chronic kidney disease if persisting greater than 3 months. An eGFR less than 15 is indicative of kidney failure. Troponin I 2025-04-23:13 [facility] 0.018 ng/ml Social History date description facility 2025-04-08 00:00 Never smoked tobacco (finding) [facility] Vital Signs date measurement value units 2025-04-08 [...]
--- OUTSIDE RECORDS SUMMARY | 2025-05-25 16:31 | EXTERNAL MEDICAL SUMMARY RPT | Continuity of Care Document ---
Author Organization [place] Address [address] [place] [id number] Phone Care Team Providers Care Bean Dumper Name Role Phone Unavailable Unavailable Latrell Hoover Unavailable Unavailable Allergies and Intolerances date description facility reaction severity 2025-04-08 13:00:24 [facility] (no reactio n) Mild 2025-04-23 13:55:28 [facility] (no reactio n) Mild 2025-04-08 13:00:24 [facility] (no reactio n) (no severity) 2025-04-23 13:55:28 [facility] (no reactio n) (no severity) 2025-04-08 13:00:24 [facility] (no reactio n) Moderate 2025-04-23 13:55:28 [facility] (no reactio n) Moderate 2025-04-08 13:00:24 [facility] (no reactio n) Moderate 2025-04-23 13:55:28 [facility] (no reactio n) Moderate 2025-04-08 13:00:24 [facility] (no reactio n) Severe 2025-04-23 13:55:28 [facility] (no reactio n) Severe 2025-04-08 13:00:24 [facility] (no reactio n) (no severity) 2025-04-23 13:55:28 [facility] (no reactio n) (no severity) Problems date description facility 2025-04-08 00:00 Electrocardiography showing paced rhythm with electrical capture [facility] 2025-04-24 00:00 Palpitations [facility] 2025-04-24 00:00 History of congenital heart dis ease [facility] 2025-04-24 00:00 Presence of cardiac pacemaker I [facility] Procedures date description facility 2025-04-23 00:00 X-ray of chest, [facility] Results/Labs test date facility value unit notes Result panel 1 Specimen collection (procedure) (no date) [facility] (missing) (missing) (missing) Result panel 2 Specimen collection (procedure) (no date) [facility] (missing) (missing) (missing) Result panel 3 Specimen collection (procedure) (no date) [facility] (missing) (missing) (missing) Result panel 4 Specimen collection (procedure) (no date) [facility] (missing) (missing) (missing) Result panel 5 Specimen collection (procedure) (no date) [facility] (missing) (missing) (missing) Result panel 6 Specimen collection (procedure) (no date) [facility] (missing) (missing) (missing) Result panel 7 Specimen collection (procedure) (no date) [facility] (missing) (missing) (missing) Result panel 8 Specimen collection (procedure) (no date) [facility] (missing) (missing) (missing) Result panel 9 Specimen collection (procedure) (no date) [facility] (missing) (missing) (missing) Result panel 10 Specimen collection (procedure) (no date) [facility] (missing) (missing) (missing) Result panel 11 Specimen collection (procedure) (no date) [facility] (missing) (missing) (missing) Result panel 12 Specimen collection (procedure) (no date) [facility] (missing) (missing) (missing) Result panel 13 Specimen collection (procedure) (no date) [facility] (missing) (missing) (missing) Result panel 14 Specimen collection (procedure) (no date) [facility] (missing) (missing) (missing) Result panel 15 Specimen collection (procedure) (no date) [facility] (missing) (missing) (missing) Result panel 16 Specimen collection (procedure) (no date) [facility] (missing) (missing) (missing) Result panel 17 Specimen collection (procedure) (no date) [facility] (missing) (missing) (missing) Result panel 18 Specimen collection (procedure) (no date) [facility] (missing) (missing) (missing) Result panel 19 Specimen collection (procedure) (no date) [facility] (missing) (missing) (missing) Result panel 20 Specimen collection (procedure) (no date) [facility] (missing) (missing) (missing) Result panel 21 Specimen collection (procedure) (no date) [facility] (missing) (missing) (missing) Result panel 22 Specimen collection (procedure) (no date) [facility] (missing) (missing) (missing) Result panel 23 Specimen collection (procedure) (no date) [facility] (missing) (missing) (missing) Result panel 24 Specimen collection (procedure) (no date) [facility] (missing) (missing) (missing) Result panel 25 Specimen collection (procedure) (no date) [facility] (missing) (missing) (missing) Result panel 26 Specimen collection (procedure) (no date) [facility] (missing) (missing) (missing) Result panel 27 Specimen collection (procedure) (no date) [facility] (missing) (missing) (missing) Result panel 28 Specimen collection (procedure) (no date) [facility] (missing) (missing) (missing) Result panel 29 Specimen collection (procedure) (no date) [facility] (missing) (missing) (missing) Result panel 30 Specimen collection (procedure) (no date) [facility] (missing) (missing) (missing) Result panel 31 Specimen collection (procedure) (no date) [facility] (missing) (missing) (missing) Result panel 32 Specimen collection (procedure) (no date) [facility] (missing) (missing) (missing) Result panel 33 Specimen collection (procedure) (no date) [facility] (missing) (missing) (missing) Result panel 34 Specimen collection (procedure) (no date) [facility] (missing) (missing) (missing) Result panel 35 Specimen collection (procedure) (no date) [facility] (missing) (missing) (missing) Result panel 36 Specimen collection (procedure) (no date) [facility] (missing) (missing) (missing) Result panel 37 Specimen collection (procedure) (no date) [facility] (missing) (missing) (missing) Result panel 38 Specimen collection (procedure) (no date) [facility] (missing) (missing) (missing) Result panel 39 Specimen collection (procedure) (no date) [facility] (missing) (missing) (missing) Result panel 40 Specimen collection (procedure) (no date) [facility] (missing) (missing) (missing) Result panel 41 Specimen collection (procedure) (no date) [facility] (missing) (missing) (missing) Result panel 42 Specimen collection (procedure) (no date) [facility] (missing) (missing) (missing) Result panel 43 Specimen collection (procedure) (no date) [facility] (missing) (missing) (missing) Result panel 44 Specimen collection (procedure) (no date) [facility] (missing) (missing) (missing) Result panel 45 Specimen collection (procedure) (no date) [facility] (missing) (missing) (missing) Result panel 46 White blood cell count 2025-04-23 18:20:07 [facility] 7 .0 X10^3/uL (missing) Result panel 47 Red blood cell count 2025-04-23 18:20:07 [facility] 4.5 3 X10^6/uL (missing) Result panel 48 Hemoglobin 2025-04-23 18:20:07 [facility] 12.5 g/d L (missing) Result panel 49 Hematocrit 2025-04-23 18:20:07 [facility] 37.8 % (missing) Result panel 50 MCV (mean corpuscular volume ) determination 2025-04-23 18:20:07 [facility] 83.4 fL (mis sing) Result panel 51 Mean corpuscular hemoglobin (MCH) determination 2025-04-23 18:20:07 [facility] 27.6 PG (missing) Result panel 52 Mean corpuscular hemoglobin concentration (MCHC) determination 2025-04-23 18:20:07 [facility] 33.1 % (mis sing) Result panel 53 Red cell distribution width determination 2025-04-23 18:20:07 [facility] 15.5 % (mis sing) Result panel 54 Platelet count 2025-04-23 18:20:07 [facility] 273 X10^3/uL (missing) Result panel 55 Automated neutrophil % 2025-04-23 18:20:07 [facility] 6 8.9 % (missing) Result panel 56 Automated lymphocyte % 2025-04-23 18:20:07 [facility] 1 5.6 % (missing) Result panel 57 Automated monocyte % 2025-04-23 18:20:07 [facility] 10. 0 % (missing) Result panel 58 Automated eosinophil % 2025-04-23 18:20:07 [facility] 4 .7 % (missing) Result panel 59 Automated basophil % 2025-04-23 18:20:07 [facility] 0.8 % (missing) Result panel 60 Absolute neutrophil count 2025-04-23 18:20:07 [facility] 4800 /uL (missing) Result panel 61 Absolute lymphocyte count 2025-04-23 18:20:07 [facility] 1100 /uL (missing) Result panel 62 Automated blood monocyte count 2025-04-23 18:20:07 [facility] spital 700 /uL (missing) Result panel 63 Automated eosinophil count 2025-04-23 18:20:07 [facility] 300 /uL (missing) Result panel 64 Automated basophil count 2025-04-23 18:20:07 [facility] 100 /uL (missing) Result panel 65 Serum prothrombin time 2025-04-23 18:20:07 [facility] 2 9.4 SECONDS (missing) Result panel 66 INR in Platelet poor plasma by Coagulation assay 2025-04-23 18:20:07 [facility] 2.7 (missing) (miss ing) Result panel 67 Thromboplastin time, partial (PTT); plasma or whole blood 2025-04-23 18:20:07 [facility] 42 SE CONDS (missing) Result panel 68 Creatine kinase [Enzymatic activity/volume] in Serum or Plasma 2025-04-23 18:20:07 [facility] 32 U/L ([facility] ing) Result panel 69 Natriuretic peptide.B prohormone N-Terminal [Mass/volume] in Serum or Plasma 2025-04-23 18:20:07 [facility] 359 pg/mL ([facility]) Result panel 70 Sodium [Moles/volume] in Serum or Plasma 2025-04-23 18:20:07 [facility] 138 mmol/L ([facility]) Result panel 71 Potassium [Moles/volume] in Serum or Plasma 2025-04-23 18:20:07 [facility] 4.6 mmol/L ([facility]) Result panel 72 Chloride [Moles/volume] in Serum or Plasma 2025-04-23 18:20:07 [facility] 107 mmol/L ([facility]) Result panel 73 Carbon dioxide, total [Moles/volume] in Serum or Plasma 2025-04-23 18:20:07 [facility] 21 mmol/L ([facility]) Result panel 74 Urea nitrogen [Mass/volume] in Serum or Plasma 2025-04-23 18:20:07 [facility] 21 mg/dL ([facility]) Result panel 75 Creatinine [Mass/volume] in Serum or Plasma 2025-04-23 18:20:07 [facility] 0.83 mg/dL ([facility]) Result panel 76 Glomerular filtration rate (GFR) estimation 2025-04-23 18:20:07 [facility] > 60 mL/min (missing) (missing) Result panel 77 BUN/creatinine ratio 2025-04-23 18:20:07 [facility] 25. 3 (missing) (missing) Result panel 78 Glucose [Mass/volume] in Ser um or Plasma 2025-04-23 18:20:07 [facility] 96 mg/dL (miss ing) Result panel 79 Calcium [Mass/volume] in Serum or Plasma 2025-04-23 18:20:07 [facility] 9.2 mg/dL ([facility] Result panel 80 Magnesium [Mass/volume] in Serum or Plasma 2025-04-23 18:20:07 [facility] 2.2 mg/dL ([facility]) Result panel 81 Bilirubin.total [Mass/volume ] in Serum or Plasma 2025-04-23 18:20:07 [facility] 0.4 mg/dL (missing) Result panel 82 Aspartate aminotransferase [Enzymatic activity/volume] in Serum or Plasma 2025-04-23 18:20:07 [facility] 30 IU/L ([facility]) Result panel 83 Alanine aminotransferase [Enzymatic activity/volume] in Serum or Plasma 2025-04-23 18:20:07 [facility] 23 IU/L ([facility]) Result panel 84 Alkaline phosphatase [Enzyma tic activity/volume] in Serum or Plasma 2025-04-23 18:20:07 [facility] 61 U/L (miss ing) Result panel 85 Protein total ser/plas 2025-04-23 18:20:07 [facility] 8 .2 g/dL (missing) Result panel 86 Albumin [Mass/volume] in Ser um or Plasma 2025-04-23 18:20:07 [facility] 4.7 g/dL (miss ing) Result panel 87 Globulin [Mass/volume] in Serum by calculation 2025-04-23 18:20:07 [facility] 3.5 g/dL (missing) Result panel 88 Albumin/Globulin [Mass Ratio] in Serum or Plasma 2025-04-23 18:20:07 [facility] 1.3 (miss ing) (missing) Result panel 89 Lipase [Enzymatic activity/volume] in Serum or Plasma 2025-04-23 18:20:07 [facility] 82 U/L (miss ing) Result panel 90 Basophils Percent Auto 2025-04-23 19:[address] [place] [address] 0.8 % (missing ) Monocytes Percent Auto 2025-04-23 19:[address] [place] [address] 10.0 % (missing ) Basophils Absolute Auto 2025-04-23 19: [facility] 100 /ul (missing ) Lymphocytes Absolute Auto 2025-04-23 19:[address] [place] [address] 1100 /ul (missing ) Hemoglobin 2025-04-23 19:[address] [place] [address] 12.5 g/dl (missing) Red Cell Distribution Width 2025-04-23 19:[address] [place] [address] 15.5 % (missing ) Lymphocytes Percent Auto 2025-04-23 19:[address] [place] [address] 15.6 % (missing ) INR 2025-04-23 19:[address] [place] [address] 2.7 (missin g) (missing) Mean Corpuscular Hemoglobin 2025-04-23 19:[address] [place] [address] 27.6 pg (missing ) Platelet Count 2025-04-23 19:[address] [place] [address] 273 x1 0 3/ul (missing) Prothrombin Time 2025-04-23:[address] [place] [address] 29.4 seconds Comment If patient is on warfarin Eosinophils Absolute Auto 2025-04-23:[address] [place] [address] 300 /ul (missing ) Mean Corpuscular HGB Conc 2025-04-[address] [place] [address] 33.1 % (missing ) Hematocrit 2025-04-23 19:[address] [place] [address] 37.8 % (missing) Red Blood Cell Count 2025-04-23 19:[address] [place] [address] 4.53 x10 6/ul (missing) Eosinophils Percent Auto 2025-04-23 19:[address] [place] [address] 4.7 % (missing ) PTT Partial Thromboplastin Daron 2025-04-23 19:[address] [place] [address] 42 seconds Co mment If patient is on warfarin Adjunctive to Coronary Thrombosis Heparin (0.1 - 0.3 UI/mL) = 40.8 - 62.7 seconds Heparin (0.3 - 0.7 UI/mL) = 62.7 - 106.4 seconds. Neutrophils Absolute Auto 2025-04-23:[address] [place] [address] 4800 /ul (missing ) Neutrophils Percent Auto 2025-04-[address] [place] [address] 68.9 % (missing ) White Blood Cell Count 2025-04-23 19:[address] [place] [address] 7.0 x10 3/ul (missing ) Monocytes Absolute Auto 2025-04-[address] [place] [address] 700 /ul (missing ) Mean Corpuscular Volume 2025-04-23 19:00 [facility] 83.4 fl (missing ) Result panel 91 Estimated Glomerular Filt Rate 2025-04-23 19:[address] [place] [address] > 60 ml/min Reported eGFR is based the CKD-EPI 2020 equation that does not use a race coefficient. An eGFR below 60 mL/min/1.73m2 suggests that some kidney damage has occurred, and indicative of chronic kidney disease if persisting greater than 3 months. An eGFR less than 15 is indicative of kidney failure. Bilirubin Total 2025-04-23 19:[address] [place] [address] 0.4 mg/dl (missing) Creatinine 2025-04-23 19:[address] [place] [address] 0.83 mg/dl (missing) Albumin Globulin Ratio 2025-04-23 19:[address] [place] [address] 1.3 (missing) (missing) Chloride 2025-04-23 19:[address] [place] [address] 107 mmol/l (missing) Sodium 2025-04-23 19:[address] [place] [address] 138 mmol/l Physician Instructions if pt has history of CHF Magnesium 2025-04-23 19:[address] [place] [address] 2.2 mg/dl Physician Instructions if pt has history of CHF Blood Urea Nitrogen 2025-04-23 19:[address] [place] [address] 21 mg/dl (missing) Carbon Dioxide 2025-04-23 19:[address] [place] [address] 21 mmol/l (missing) Alanine Aminotransferase 2025-04-23 19:[address] [place] [address] 23 iu/l (missing) BUN Creatinine Ratio 2025-04-23 19:[address] [place] [address] 25.3 (missing) (missing) Globulin 2025-04-23 19:[address] [place] [address] 3.5 g/dl (missing) Aspartate Aminotransferase 2025-04-23 19:[address] [place] [address] 30 iu/l (missing) Creatine Kinase 2025-04-23 19:[address] [place] [address] 32 u/l Physician Instructions if pt has history of CHF Potassium 2025-04-23 19:[address] [place] [address] 4.6 mmol/l (missing) Albumin 2025-04-23 19:[address] [place] [address] 4.7 g/dl (missing) Alkaline Phosphatase 2025-04-23 19:[address] [place] [address] 61 u/l (missing) Total Protein 2025-04-23 19:[address] [place] [address] 8.2 g/dl (missing) Lipase 2025-04-23 19:[address] [place] [address] 82 u/l Physician Instructions if pt has history of CHF Calcium 2025-04-23 19:05 [facility] 9.2 mg/dl (missing) Glucose 2025-04-23 19:05 [facility] 96 mg/dl (missing) Result panel 92 Estimated Glomerular Filt Rate 2025-04-23 19:13 [facility] > 60 ml/min Reported eGFR is based the CKD-EPI 2020 equation that does not use a race coefficient. An eGFR below 60 mL/min/1.73m2 suggests that some kidney damage has occurred, and indicative of chronic kidney disease if persisting greater than 3 months. An eGFR less than 15 is indicative of kidney failure. Troponin I 2025-04-23:13 [facility] 0.018 ng/ml Social History date description facility 2025-04-08 00:00 Never smoked tobacco (finding) [facility] Vital Signs date measurement value units 2025-04-08 [...]
--- NOTE | 2025-05-25 16:44 | PHARMACY PROGRESS NOTE ---
Best Possible Medication History Admit Date and Time: 05/25/25 [id number] Home Medications Medication Instructions Recorded Confirmed Type lisinopril 5 mg tablet 5 mg PO DAILY 03/25/1805/25 History sertraline 100 mg tablet (Zoloft) 150 mg PO Q24H 03/2505/25/25 History warfarin 5 mg tablet (Jantoven) 5 mg PO DAILY 03/25/18 05/25/25 History ergocalciferol (vitamin D2) 1,250 1,250 mcg PO QWEEK 0 05/25/25 05/25/25 History mcg (50,000 unit) capsule (Vitamin D2) famotidine 20 mg tablet (Acid 20 mg PO BID 05/25/25 History Controller) metoprolol succinate 50 mg 50 mg PO Q12H 05/25/2504/28 History tablet,extended release 24 hr penicillin V potassium 250 mg 250 mg PO BID 05/25/25 0 05/25/25 History tablet topiramate 50 mg tablet 50 mg PO BID 05/25/25 History Processed by: Pharmacy Medications reviewed in ED?: Yes Medication History completed: Yes Patient Interview: Completed Secondary Source(s): Pharmacy records and Insurance records [facility] Statement: As the person ultimately responsible for medication therapy, providers are able to order a medication from an existing home medication list in [facility] via the "Reconcile Routine" prior to Confirmation of that medication by ground support agent. Such practice is discouraged except when the physician, in their clinical judgm ent, deems that a medical need exists for a medication without regard to previous use.
[2025-05-25] MEDS ORDERED: HYDROcod/ACETAM 5/325 MG TABLET PO PRN (17:32)
[2025-05-25] MEDS ORDERED: SODIUM CHLORIDE FLUSH 0.9% 10 ML SYRINGE IVP PRN (17:32)
[2025-05-25] MEDS ORDERED: PROCHLORPERAZINE 10 MG/2 ML VIAL IVP PRN (17:32)
[2025-05-25] MEDS ORDERED: oxyCODONE 5 MG TABLET PO PRN (17:32)
[2025-05-25] MEDS: SODIUM CHLORIDE FLUSH 0.9% 10 ML SYRINGE IVP SCH (18:13)
[2025-05-25] MEDS: SODIUM CHLORIDE 0.9% 1,000 ML IV SCH (18:13)
[2025-05-25] MEDS ORDERED: ERGOCALCIFEROL 50,000 UNIT CAPSULE PO SCH (20:00)
[2025-05-25] MEDS: SERTRALINE 50 MG TABLET PO SCH (21:02)
[2025-05-25] MEDS: METOPROLOL SUCCINATE 50 MG TABLET PO SCH (21:02)
[2025-05-25] MEDS: TOPIRAMATE 25 MG TABLET PO SCH (21:03)
[2025-05-25] MEDS: FAMOTIDINE 20 MG TABLET PO SCH (21:03)
[2025-05-25] MEDS: ACETAMINOPHEN 325 MG TABLET PO PRN (22:36)
[2025-05-26 06:27] LABS: HCT - HEMATOCRIT 32.3 % (37.0-47.0); HGB - HEMOGLOBIN 10.1 g/dL (12.0-16.0); MEAN PLATELET VOLUME 10.5 fL (7.9-10.8); NRBC ABSOLUTE COUNT (AUTO) 0.00 x10^3/uL; NUCLEATED RED BLOOD CELLS AUTO 0.0 /100WBC; PLT - PLATELET COUNT 199 10^3/uL (130-450); RED CELL DISTRIBUTION WIDTH 15.2 % (12.0-15.0)
[2025-05-26 06:35] LABS: INR 2.0 (0.8-1.2); PT - PROTHROMBIN TIME 21.9 secs (9.9-12.6)
[2025-05-26 06:44] LABS: BUN - BLOOD UREA NITROGEN 17.0 mg/dL (6-20); CARBON DIOXIDE - CO2 23.0 mmol/L (21-32); CREATININE 0.8 mg/dL (0.6-1.3); GFR - MDRD 82.0 (>89)
[2025-05-26] MEDS: LINEZOLID 600 MG/300 ML 600 MG/300 ML BAG IV SCH (12:19)
[2025-05-26] MEDS: WARFARIN 5 MG TABLET PO SCH (14:18)
--- NOTE | 2025-05-26 14:33 | PROVIDER PROGRESS NOTE ---
Subjective Prog Note Date Prog Note Date: 05/26/25 Prog Note Time: 14:32 Subjective Pt reports feeling: Improved Subjective: She has been hospitalized twice before for endocarditis. Once was for Pseudomonas endocarditis at . The second time was for staph endocarditis in [place] when she was a of an active duty [employer]. She is followed by the adult congenital heart disease clinic. She had an elective cardioversion done. She says that she does not remember an hour and a half of her stay there but she would expect that because she had conscious sedation. She was discharged in stable condition and got as far as [place] when she realized that she was having rigors, sweats, and her right chest "just did not feel right". She has a history of bronchiectasis in the left lung and knows what that feels like. She started feeling like she had cough and she coughed up blood in the car. She went ahead and just kept on coming to the [place] anyway. She then presented to our emergency room. She was hypoxic and mildly hypotensive at 90/50. Hypoxia was 84% on room air. She initially required 3 L nasal cannula oxygenator. Evaluation showed her to have most likely aspiration pneumonitis in the right lung. She has responded to IV Levaquin. Between yesterday and today her oxygen requirement has dropped to no oxygen needed and she is 92% on room air. She was happy to go home and I was making arrangements for her to take oral antibiotics when I reviewed her labs. Blood culture in the left arm has no growth. Blood culture in the right arm is coag negative staph with identification and sensitivities to follow. The blood was drawn at approximately 9 PM on the . They became positive at 3:30 PM on the . Preliminary PCR says that Staphylococcus species. I called the color adviser in the clinic.Glenys Marmolejo MD and explained the situation. She was afebrile. Did not have an elevated white cell count. Was hemodynamically stable. No longer needing oxygen. But now with positive blood cultures. He spoke to his attending on-call and they do not feel she needs to be transferred. He would like me to do a transthoracic echo. Repeat blood cultures once she has been on appropriate antibiotics for 24 hours. I shared all of this with her. She is understandably very displeased with the course of events. She also cannot believe that this is going to happen to her for third time. She is ambulating in the hallways. Has a deep congested cough. But no tachypnea. No tachycardia. She continues to have the left chest discomfort from her chronic bronchiectasis. Her right chest feels congested but no pleuritic chest pain. Cough is productive of hemoptysis. She asked if we could please keep SCDs on her legs at night because it really helps with restless leg syndrome. And she would like to go back on her Coumadin as opposed to therapeutic Lovenox. Current Medications Current Medications Current Medications: Current Medications Generic Name Dose Route Start Last Admin Trade Name Freq PRN Reason Stop Dose Admin Acetaminophen 650 mg 05/25/25 17:32 05/26/25 11:06 Acetaminophen 325 Mg Tablet PO 650 mg Q4HR PRN Administration Pain 1 to 4, or Fever Hydrocodone Bitart/Acetaminophen 1 tab 05/25/25 17:32 Hydrocod/Acetam 5/325 Mg Tablet PO Q4HR PRN Pain 5 to 7 Ergocalciferol 50,000 unit 05/25/25 20:00 Ergocalciferol 50,000 Unit Capsule PO QWEEK YARELI Famotidine 20 mg 05/25/25 21:00 05/26/25 10:34 Famotidine 20 Mg Tablet PO 20 mg BID YARELI Administration Linezolid 600 mg in 300 mls @ 300 mls/hr 05/26/25 12:00 05/26/25 13:20 Zyvox 600 Mg/300 Ml IV Infused Q12H YARELI Infusion Lisinopril 5 mg 05/26/25 09:00 05/26/25 10:34 Lisinopril 5 Mg Tablet PO 5 mg DAILY YARELI Administration Metoprolol Succinate 50 mg 05/25/25 20:00 05/26/25 10:34 Metoprolol Succinate 50 Mg Tablet PO 50 mg Q12H YARELI Administration Oxycodone HCl 10 mg 05/25/25 17:32 Oxycodone 5 Mg Tablet PO Q4HR PRN Pain 8 to 10 Prochlorperazine Edisylate 10 mg 05/25/25 17:32 Prochlorperazine 10 Mg/2 Ml Vial IVP Q6HR PRN Nausea / Vomiting Sertraline HCl 150 mg 05/25/25 20:00 05/25/25 21:02 Sertraline 50 Mg Tablet PO 150 mg Q24H YARELI Administration Sodium Chloride 10 ml 05/25/25 17:32 Sodium Chloride Flush 0.9% 10 Ml Syringe IVP PRN PRN NEEDED PER PROVIDER ORDERS Sodium Chloride 10 ml 05/25/25 17:32 05/26/25 10:35 Sodium Chloride Flush 0.9% 10 Ml Syringe IVP 10 ml 0100,0900,1700 YARELI Administration Topiramate 50 mg 05/25/25 21:00 05/26/25 10:34 Topiramate 25 Mg Tablet PO 50 mg BID YARELI Administration Warfarin Sodium 5 mg 05/26/25 14:00 05/26/25 14:18 Warfarin 5 Mg Tablet PO 5 mg QDWARFARIN YARELI Administration Objective Vital Signs/Intake & Output Reviewed Vital Signs: Yes Vital Signs: Vital Signs x48h Temp Pulse Resp BP Pulse Ox O2 Flow Rate 05/26/25 13:00 36.6 C 88 18 117/70 92 05/26/25 07:48 36.7 C 76 18 111/56 L 98 1 Intake & Output: Intake & Output 05/23/25 05/24/25 05/25/25 05/26/25 23:59 23:59 23:59 23:59 Intake Total 1300 / 1300 1840 / 1840 Balance 1300 / 1300 1840 / 1840 Weight (kg) 68.991 kg 68.99 kg Objective General Appearance: positive No acute distress, Alert and Other (35-year-old female who is 5 feet 4 inches tall, 68.9 kg, BMI 26. Alert, oriented, understands the situation.) Eyes Bilateral: positive PERRL, EOMI and Other (Wearing her glasses.) ENT: positive No signs of dehydration Neck: negative Stiff neck or Carotid bruit Respiratory: positive No respiratory distress, Rhonchi (Deep rumbling rhonchi in the right midlung and right lower lobe. Slight whistling rhonchi left midlung. She says SOB her left lung always sounds.) and Other (Intermittent congested cough where she is bringing up hemoptysis with thick phlegm) Cardiovascular: positive Regular rate & rhythm, Systolic murmur and Diastolic murmur Abdomen: positive Non-tender, No organomegaly, Nml bowel sounds and No distention Skin: positive Warm, Dry and Pallor Extremities: positive Non-tender, Full ROM and Nml appearance Neurologic/Psychiatric: positive Oriented x3, CN's nml (2-12) and Motor nml Lab Results 05/26/25 05:48 05/26/25 05:48 Other Labs: Lab Results x24hrs 05/26/25 Range/Units 05:48 WBC 7.6 (4.8-10.8) x10^3/uL RBC 3.74 L (4.20-5.40) 10^6/uL Hgb 10.1 L (12.0-16.0) g/dL Hct 32.3 L (37.0-47.0) % MCV 86.4 (81.0-99.0) fL MCH 27.0 (27.0-31.0) pg MCHC 31.3 L (32.0-36.0) g/dL RDW 15.2 H (12.0-15.0) % Plt Count 199 (130-450) 10^3/uL MPV 10.5 (7.9-10.8) fL Neut # (Auto) 5.9 (1.5-6.6) 10^3/uL Lymph # (Auto) 0.9 L (1.5-3.5) 10^3/uL [place] # (Auto) 0.6 (0.0-1.0) 10^3/uL Eos # (Auto) 0.2 (0.0-0.7) 10^3/uL Baso # (Auto) 0.0 (0.0-0.1) 10^3/uL Absolute Nucleated RBC 0.00 x10^3/uL Nucleated RBC % 0.0 /100WBC PT 21.9 H (9.9-12.6) secs INR 2.0 H (0.8-1.2) Sodium 137 (135-145) mmol/L Potassium 3.7 (3.5-4.5) mmol/L Chloride 109 (101-111) mmol/L Carbon Dioxide 23 (21-32) mmol/L Anion Gap 5.0 L (6-13) BUN 17 (6-20) mg/dL Creatinine 0.8 (0.6-1.3) mg/dL Estimated GFR (MDRD) 82 L (>89) Glucose 110 H (74-104) mg/dL Calcium 8.8 (8.5-10.3) mg/dL Assessment/Plan Problem List (1) Right lower lobe pneumonia: Impression: This patient is being treated as an aspiration pneumonia associated with a cardioversion. Her CAT scan shows the changes consistent with that. She initially had hypoxia with her presentation to the emergency room. Over the course of admission a little after midnight on the , to today, her oxygen requirement has abated and she is now on room air. For her aspiration she was on Levaquin. I need to discuss this with pharmacy because I am switching her antibiotics for possible staph endocarditis. Currently without fever, without white cell count. If it was not for the positive blood cultures, I would be sending her home today. Qualifiers: Pneumonia type: aspiration pneumonia (2) Coagulase negative Staphylococcus bacteremia: Impression: In a patient who has a mechanical mitral valve. The color adviser states that she does have mild mitral stenosis due to her mechanical valve. As stated in subjective today, he has discussed the case with the attending. They do not feel that she needs to be transferred to on the basis of stable hemodynamic parameters, and a stable cardiac exam. It is also the Day weekend and they do not think anybody would see her until next Wednesday. So my plan is to start her on linezolid today. She is allergic to vancomycin and ceftriaxone. I will repeat cultures in 24 hours. I will also order a transthoracic echo. I have updated the patient. She is very fatalistic and cannot believe this is happening to her again. I asked if she wanted me to speak to her parents and she said that I could wait. In the meantime I am encouraged her to keep on walking in the hallways as she is doing. Eating her food. And staying physically active to avoid worsening pneumonia. (3) Mechanical heart valve present: Impression: On therapeutic Lovenox. I will stop that and resume her usual home Coumadin. Even though she is having hemoptysis, I feel like I could reverse her Coumadin more easily. Hemoglobin was 12 on admission it is 10.1 today. I will continue to monitor closely. If her hemoptysis changes from the thick phlegm that it is right now to more jose liquid blood, I may choose to stop the Coumadin again and resume Lovenox. At that point I would recommend transfer to our [facility]. (4) HTN (hypertension): Impression: She takes lisinopril and metoprolol at home. Those have been resumed here. (5) Depression with anxiety: Impression: She wants to make sure that she takes her sertraline and Topamax. She usually takes those at home and if she cannot take her medicine on a regular basis she goes "to a dark place". She is also wondering, if she is diagnosed with endocarditis again, if we have access to counseling. I know that we have telepsych, but I do not think psychiatry will do regular cognitive behavioral therapy while the patient is in the hospital. I will verify. I will also order the sequential compression device that she asked for.
[2025-05-27 05:31] LABS: HCT - HEMATOCRIT 31.5 % (37.0-47.0); HGB - HEMOGLOBIN 9.8 g/dL (12.0-16.0); MEAN PLATELET VOLUME 10.2 fL (7.9-10.8); NRBC ABSOLUTE COUNT (AUTO) 0.00 x10^3/uL; NUCLEATED RED BLOOD CELLS AUTO 0.0 /100WBC; PLT - PLATELET COUNT 205 10^3/uL (130-450); RED CELL DISTRIBUTION WIDTH 15.4 % (12.0-15.0)
[2025-05-27 05:42] LABS: INR 1.5 (0.8-1.2); PT - PROTHROMBIN TIME 17.0 secs (9.9-12.6)
[2025-05-27 05:47] LABS: BUN - BLOOD UREA NITROGEN 15.0 mg/dL (6-20); CARBON DIOXIDE - CO2 23.0 mmol/L (21-32); CREATININE 0.8 mg/dL (0.6-1.3); GFR - MDRD 82.0 (>89)
[2025-05-27] MEDS: ceFAZolin (2G) 2 GM in SODIUM CHLORIDE 0.9% MINIBAG 100 ML IV SCH (11:51)
--- NOTE | 2025-05-27 13:35 | PROVIDER PROGRESS NOTE ---
Subjective Prog Note Date Prog Note Date: 05/27/25 Prog Note Time: 13:33 Subjective Subjective: She has been stable since the day after admission. She no longer requires oxygen. She has no fevers. Vitals are stable. She is ambulating in the hallways. Cough continues to be deep and occasionally painful but she is no longer bringing up phlegm or hemoptysis today. Mom is in the room and I have updated her on the problem which is that of staph bacteremia. Current Medications Current Medications Current Medications: Current Medications Generic Name Dose Route Start Last Admin Trade Name Freq PRN Reason Stop Dose Admin Acetaminophen 650 mg 05/25/25 17:32 05/26/25 11:06 Acetaminophen 325 Mg Tablet PO 650 mg Q4HR PRN Administration Pain 1 to 4, or Fever Hydrocodone Bitart/Acetaminophen 1 tab 05/25/25 17:32 Hydrocod/Acetam 5/325 Mg Tablet PO Q4HR PRN Pain 5 to 7 Ergocalciferol 50,000 unit 05/28/25 09:00 Ergocalciferol 50,000 Unit Capsule PO Mo YARELI Famotidine 20 mg 05/25/25 21:00 05/27/25 09:00 Famotidine 20 Mg Tablet PO 20 mg BID YARELI Administration Cefazolin Sodium 2 gm/ Sodium 100 mls @ 200 mls/hr 05/27/25 12:00 05/27/25 11:51 Chloride IV 200 mls/hr Q8H YARELI Administration Lisinopril 5 mg 05/26/25 09:00 05/27/25 09:00 Lisinopril 5 Mg Tablet PO 5 mg DAILY YARELI Administration Metoprolol Succinate 50 mg 05/25/25 20:00 05/27/25 09:00 Metoprolol Succinate 50 Mg Tablet PO 50 mg Q12H YARELI Administration Oxycodone HCl 10 mg 05/25/25 17:32 Oxycodone 5 Mg Tablet PO Q4HR PRN Pain 8 to 10 Prochlorperazine Edisylate 10 mg 05/25/25 17:32 Prochlorperazine 10 Mg/2 Ml Vial IVP Q6HR PRN Nausea / Vomiting Sertraline HCl 150 mg 05/25/25 20:00 05/26/25 21:06 Sertraline 50 Mg Tablet PO 150 mg Q24H YARELI Administration Sodium Chloride 10 ml 05/25/25 17:32 Sodium Chloride Flush 0.9% 10 Ml Syringe IVP PRN PRN NEEDED PER PROVIDER ORDERS Sodium Chloride 10 ml 05/25/25 17:32 05/27/25 09:00 Sodium Chloride Flush 0.9% 10 Ml Syringe IVP 10 ml 0100,0900,1700 YARELI Administration Topiramate 50 mg 05/25/25 21:00 05/27/25 09:00 Topiramate 25 Mg Tablet PO 50 mg BID YARELI Administration Warfarin Sodium 5 mg 05/26/25 14:00 05/26/25 14:18 Warfarin 5 Mg Tablet PO 5 mg QDWARFARIN YARELI Administration Warfarin Sodium 2.5 mg 05/27/25 14:00 Warfarin 2.5 Mg Tablet PO SuMo@1400 [facility] Objective Vital Signs/Intake & Output Reviewed Vital Signs: Yes Vital Signs: Vital Signs x48h Temp Pulse Resp BP Pulse Ox 05/27/25 09:00 36.7 C 67 18 116/70 92 Intake & Output: Intake & Output 05/24/25 05/25/25 05/26/25 05/27/25 23:59 23:59 23:59 23:59 Intake Total 1300 / 1300 2080 / 2080 920 / 920 Balance 1300 / 1300 2080 / 2080 920 / 920 Weight (kg) 68.991 kg 68.99 kg Objective General Appearance: positive No acute distress, Alert and Other (Oriented to person, place, time and situation. Ambulating in her room and in the hallway. Occasional deep congested cough but nonproductive. She complains of mild dyspnea but nothing that's limiting her.) Eyes Bilateral: positive PERRL, EOMI and Other (Wearing her glasses.) ENT: positive No signs of dehydration and Oral lesions (Eruption of blisters along her lower lip vermilion border and just inside the lower lip) Neck: positive No JVD; negative Stiff neck or Carotid bruit Respiratory: positive Chest non-tender, No respiratory distress and Rhonchi (Loud rumbling rhonchi yesterday in the right lung. Rhonchi still present but not nearly as loud. Crackles at both lung bases.) Cardiovascular: positive Regular rate & rhythm, Systolic murmur and Diastolic murmur Abdomen: positive Non-tender, No organomegaly and Nml bowel sounds Skin: positive Color nml, Warm, Dry and Pallor Extremities: positive Non-tender, Full ROM and Nml appearance Neurologic/Psychiatric: positive Oriented x3, CN's nml (2-12), Motor nml and Mood/affect nml Lab Results 05/27/25 05:00 05/27/25 05:00 Other Labs: Lab Results x24hrs 05/27/25 Range/Units 05:00 WBC 6.5 (4.8-10.8) x10^3/uL RBC 3.66 L (4.20-5.40) 10^6/uL Hgb 9.8 L (12.0-16.0) g/dL Hct 31.5 L (37.0-47.0) % MCV 86.1 (81.0-99.0) fL MCH 26.8 L (27.0-31.0) pg MCHC 31.1 L (32.0-36.0) g/dL RDW 15.4 H (12.0-15.0) % Plt Count 205 (130-450) 10^3/uL MPV 10.2 (7.9-10.8) fL Neut # (Auto) 4.7 (1.5-6.6) 10^3/uL Lymph # (Auto) 0.9 L (1.5-3.5) 10^3/uL [place] # (Auto) 0.5 (0.0-1.0) 10^3/uL Eos # (Auto) 0.4 (0.0-0.7) 10^3/uL Baso # (Auto) 0.0 (0.0-0.1) 10^3/uL Absolute Nucleated RBC 0.00 x10^3/uL Nucleated RBC % 0.0 /100WBC PT 17.0 H (9.9-12.6) secs INR 1.5 H (0.8-1.2) Sodium 137 (135-145) mmol/L Potassium 3.7 (3.5-4.5) mmol/L Chloride 110 (101-111) mmol/L Carbon Dioxide 23 (21-32) mmol/L Anion Gap 4.0 L (6-13) BUN 15 (6-20) mg/dL Creatinine 0.8 (0.6-1.3) mg/dL Estimated GFR (MDRD) 82 L (>89) Glucose 109 H (74-104) mg/dL Calcium 9.3 (8.5-10.3) mg/dL ABX Reporting Has patient been on IV antibiotics over the past 48 hours?: Yes Assessment/Plan Problem List (1) Coagulase negative Staphylococcus bacteremia: Impression: We had initially started her on Levaquin for aspiration. Not clear why telehealth did that but the next day her blood cultures became positive. So she was switched to linezolid because she is allergic to Rocephin and vancomycin. She received 1 day of the linezolid and sensitivities were reviewed this morning for the staph. She is oxacillin sensitive. And we switched her to Ancef. We are trying to decide if this poor young lady will need prolonged antibiotic therapy. I need guidance. As such I reached out to . The transfer center says that ID does not do consults and I will have to go to the congenital heart clinic which I have already spoken to. They advised me the first couple of days she was here. My question to them is how long will she need IV antibiotics. If she does need prolonged therapy, she will need a [place]. 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 I will await their response. Today she is on Ancef for the first time. Tomorrow I will check her blood cultures. Echocardiogram has been ordered but tech not available today due to scheduling. (2) Right lower lobe pneumonia: Impression: Still evident on lung exam. I am worried that I may not have her on the correct antibiotic overall. She has definite aspiration changes in the right lung. The argument can be made that she had a mild chemical pneumonitis. While here she has not had a fever, white cell count is normal, there is no left shift. Hypoxemia present on admission has resolved. Hopefully the congenital heart clinic can advise me as well. Qualifiers: Pneumonia type: aspiration pneumonia Aspiration pneumonia type: due to gastric secretions Qualified Code(s): J69.0 - Pneumonitis due to inhalation of food and vomit (3) Mechanical heart valve present: Impression: Mechanical mitral valve. Functional mitral stenosis present on previous echoes according to the cardiology clinic fellow from admission. Patient is to be continued on anticoagulation. She is on her Coumadin. Today INR is 1.5 for the first time has dropped below 2. Pharmacy adjusting Coumadin. (4) HTN (hypertension): Impression: Lisinopril, metoprolol, and blood pressure is stable. She is 116/70. Qualifiers: Hypertension type: primary hypertension Qualified Code(s): I10 - Essential (primary) hypertension (5) Depression with anxiety: Impression: On her usual home medications of Zoloft, Topamax.
[2025-05-27] MEDS: WARFARIN 2.5 MG TABLET PO SCH (14:09)
[2025-05-27] MEDS: ENOXAPARIN 80 MG/0.8 ML SYRINGE SUBQ SCH (16:17)
[2025-05-28 05:34] LABS: HCT - HEMATOCRIT 33.3 % (37.0-47.0); HGB - HEMOGLOBIN 10.2 g/dL (12.0-16.0); MEAN PLATELET VOLUME 9.9 fL (7.9-10.8); NRBC ABSOLUTE COUNT (AUTO) 0.00 x10^3/uL; NUCLEATED RED BLOOD CELLS AUTO 0.0 /100WBC; PLT - PLATELET COUNT 262 10^3/uL (130-450); RED CELL DISTRIBUTION WIDTH 15.3 % (12.0-15.0)
[2025-05-28 05:53] LABS: BUN - BLOOD UREA NITROGEN 26.0 mg/dL (6-20); CARBON DIOXIDE - CO2 21.0 mmol/L (21-32); CREATININE 0.9 mg/dL (0.6-1.3); GFR - MDRD 71.0 (>89)
[2025-05-28] MEDS: ENOXAPARIN 80 MG/0.8 ML SYRINGE SUBQ SCH (08:17)
[2025-05-28] MEDS: ERGOCALCIFEROL 50,000 UNIT CAPSULE PO SCH (08:19)
[2025-05-28 09:30] LABS: INR 2.0 (0.8-1.2); PT - PROTHROMBIN TIME 22.0 secs (9.9-12.6)
--- NOTE | 2025-05-28 18:28 | PROVIDER PROGRESS NOTE ---
Subjective Prog Note Date Prog Note Date: 05/28/25 Prog Note Time: 18:17 Subjective Pt reports feeling: No change Subjective: She was accepted at for transfer. They have felt that they would have a bed for her today but the patient is still here. When she is at rest she does well without oxygen requirement. As she gets up and walks around she may drop to 90%. But when she gets aggressively active such as laughing, walking quickly, she drops to 78%. Cough is dry. Rarely productive of hemoptysis anymore. She is eating 100% of her food. Completely independent with regards to ambulation. She gets out of bed, goes to bathroom, wanders in the hallways without any difficulty. She just carries her oxygen tank with her if she is going to walk the hallways because she does desaturate. Current Medications Current Medications Current Medications: Current Medications Generic Name Dose Route Start Last Admin Trade Name Freq PRN Reason Stop Dose Admin Acetaminophen 650 mg 05/25/25 17:32 05/26/25 11:06 Acetaminophen 325 Mg Tablet PO 650 mg Q4HR PRN Administration Pain 1 to 4, or Fever Hydrocodone Bitart/Acetaminophen 1 tab 05/25/25 17:32 Hydrocod/Acetam 5/325 Mg Tablet PO Q4HR PRN Pain 5 to 7 Enoxaparin Sodium 70 mg 05/28/25 09:00 05/28/25 08:17 Enoxaparin 80 Mg/0.8 Ml Syringe SUBQ 70 mg BID YARELI Administration Ergocalciferol 50,000 unit 05/28/25 09:00 05/28/25 08:19 Ergocalciferol 50,000 Unit Capsule PO 50,000 unit Mo YARELI Administration Famotidine 20 mg 05/25/25 21:00 05/28/25 08:17 Famotidine 20 Mg Tablet PO 20 mg BID YARELI Administration Cefazolin Sodium 2 gm/ Sodium 100 mls @ 200 mls/hr 05/27/25 12:00 05/28/25 12:50 Chloride IV Infused Q8H YARELI Infusion Lisinopril 5 mg 05/26/25 09:00 05/28/25 08:17 Lisinopril 5 Mg Tablet PO 5 mg DAILY YARELI Administration Metoprolol Succinate 50 mg 05/25/25 20:00 05/28/25 08:17 Metoprolol Succinate 50 Mg Tablet PO 50 mg Q12H YARELI Administration Oxycodone HCl 10 mg 05/25/25 17:32 Oxycodone 5 Mg Tablet PO Q4HR PRN Pain 8 to 10 Prochlorperazine Edisylate 10 mg 05/25/25 17:32 Prochlorperazine 10 Mg/2 Ml Vial IVP Q6HR PRN Nausea / Vomiting Sertraline HCl 150 mg 05/25/25 20:00 05/27/25 20:27 Sertraline 50 Mg Tablet PO 150 mg Q24H YARELI Administration Sodium Chloride 10 ml 05/25/25 17:32 Sodium Chloride Flush 0.9% 10 Ml Syringe IVP PRN PRN NEEDED PER PROVIDER ORDERS Sodium Chloride 10 ml 05/25/25 17:32 05/28/25 17:28 Sodium Chloride Flush 0.9% 10 Ml Syringe IVP 10 ml 0100,0900,1700 YARELI Administration Topiramate 50 mg 05/25/25 21:00 05/28/25 08:17 Topiramate 25 Mg Tablet PO 50 mg BID YARELI Administration Warfarin Sodium 5 mg 05/26/25 14:00 05/28/25 13:58 Warfarin 5 Mg Tablet PO 5 mg QDWARFARIN YARELI Administration Warfarin Sodium 2.5 mg 05/27/25 14:00 05/28/25 13:58 Warfarin 2.5 Mg Tablet PO 2.5 mg SuMo@1400 YARELI Administration Objective Vital Signs/Intake & Output Reviewed Vital Signs: Yes Vital Signs: Vital Signs x48h Temp Pulse Resp BP Pulse Ox 05/28/25 16:27 36.6 C 77 18 110/70 94 05/28/25 13:00 36.7 C 73 18 103/62 95 Intake & Output: Intake & Output 05/25/25 05/26/25 05/27/25 05/28/25 23:59 23:59 23:59 23:59 Intake Total 1300 / 1300 2080 / 2080 2960 / 2960 880 / 880 Balance 1300 / 1300 2080 / 0 2960 / 2960 880 / 880 Weight (kg) 68.99 kg Objective General Appearance: positive No acute distress, Alert and Other (Fatigued appearing today. Blisters on her lips are now starting to dry up.) Eyes Bilateral: positive PERRL, EOMI and Other (Wearing her glasses) ENT: positive No signs of dehydration Neck: positive No JVD; negative Stiff neck or Carotid bruit Respiratory: positive Chest non-tender, No respiratory distress (At rest or with exertion. There is no use of accessory muscles even though she desaturates) and Other (Deep, deep rumbling rhonchi were present on admission. Yesterday late improved. Decibel level less evident. Today about the same as yesterday in the right midlung. Left lung with crackles) Cardiovascular: positive Regular rate & rhythm, Systolic murmur and Diastolic murmur Abdomen: positive Non-tender, No organomegaly, Nml bowel sounds and No distention Skin: positive Color nml, No rash, Warm and Dry Extremities: positive Non-tender, Full ROM and Nml appearance Lab Results 05/28/25 05:27 05/28/25 05:27 Other Labs: Lab Results x24hrs 05/28/25 05/28/25 Range/Units 08:45 05:27 WBC 6.6 (4.8-10.8) x10^3/uL RBC 3.84 L (4.20-5.40) 10^6/uL Hgb 10.2 L (12.0-16.0) g/dL Hct 33.3 L (37.0-47.0) % MCV 86.7 (81.0-99.0) fL MCH 26.6 L (27.0-31.0) pg MCHC 30.6 L (32.0-36.0) g/dL RDW 15.3 H (12.0-15.0) % Plt Count 262 (130-450) 10^3/uL MPV 9.9 (7.9-10.8) fL Neut # (Auto) 4.4 (1.5-6.6) 10^3/uL Lymph # (Auto) 1.2 L (1.5-3.5) 10^3/uL [place] # (Auto) 0.6 (0.0-1.0) 10^3/uL Eos # (Auto) 0.5 (0.0-0.7) 10^3/uL Baso # (Auto) 0.1 (0.0-0.1) 10^3/uL Absolute Nucleated RBC 0.00 x10^3/uL Nucleated RBC % 0.0 /100WBC PT 22.0 H (9.9-12.6) secs INR 2.0 H (0.8-1.2) Sodium 136 (135-145) mmol/L Potassium 4.0 (3.5-4.5) mmol/L Chloride 109 (101-111) mmol/L Carbon Dioxide 21 (21-32) mmol/L Anion Gap 6.0 (6-13) BUN 26 H (6-20) mg/dL Creatinine 0.9 (0.6-1.3) mg/dL Estimated GFR (MDRD) 71 L (>89) Glucose 100 (74-104) mg/dL Calcium 9.2 (8.5-10.3) mg/dL Assessment/Plan Problem List (1) Coagulase negative Staphylococcus bacteremia: Impression: We had initially started her on Levaquin for aspiration. Not clear why telehealth did that but the next day her blood cultures became positive For coag negative staph. So she was switched to linezolid because she is allergic to Rocephin and vancomycin. She received 1 day of the linezolid and sensitivities Were published May 27. She is oxacillin sensitive For staph warneri.. And we switched her to Ancef. Today is Day #2 for Ancef. Blood cultures were repeated today and results are pending. We are trying to decide if this poor young lady will need prolonged antibiotic therapy. I needed guidance. As such I reached out to 05/27 again. The transfer center says that ID does not do consults and I will have to go to the congenital heart clinic which I have already spoken to. Dr. Asim Marmolejo was the fellow psychiatric nurse practitioner who advised me the first couple of days she was here. My question to them now is how long will she need IV antibiotics. If she does need prolonged therapy, she will need a Rock. 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 I spoke to the adult congenital heart clinic attending psychiatric nurse practitioner today. Dr. Gibbs. He would like the patient transferred because she needs a transesophageal echo before they can answer the question of how long and how much antibiotics. I then spoke to the substation technician on-call. And then that person, Jennifer Jenkins has accepted this patient in transfer. We had hoped that she would be able to transfer today but we have not received a phone call from . We will await their phone call, possibly tomorrow. (2) Right lower lobe pneumonia: Impression: Still evident on lung exam. I am worried that I may not have her on the correct antibiotic overall. She has definite aspiration changes in the right lung. The argument can be made that she had a mild chemical pneumonitis. While here she has not had a fever, white cell count is normal, there is no left shift. Hypoxemia present on admission Had resolved. When she is at rest, that she does not need oxygen. Is only when she is aggressively active that she desaturates. So currently back on oxygen when she desaturates with exertion. She is 94 to 96% on room air. Qualifiers: Pneumonia type: aspiration pneumonia Aspiration pneumonia type: due to gastric secretions Qualified Code(s): J69.0 - Pneumonitis due to inhalation of food and vomit (3) Mechanical heart valve present: Impression: Mechanical mitral valve. Functional mitral stenosis present on previous echoes according to the cardiology clinic fellow from admission. Patient is to be continued on anticoagulation. She is on her Coumadin. On May 27 her INR dropped to 1.5. I put her on treatment dose Lovenox. She received 2 doses and today her INR is 2 so that is stopped. She will be remained on her Coumadin.. (4) HTN (hypertension): Impression: Lisinopril, metoprolol, and blood pressure is stable. She is 110/70. Qualifiers: Hypertension type: primary hypertension Qualified Code(s): I10 - Essential (primary) hypertension (5) Depression with anxiety: Impression: On her usual home medications of Zoloft, Topamax.
[2025-05-29 07:45] LABS: INR 2.5 (0.8-1.2); PT - PROTHROMBIN TIME 27.9 secs (9.9-12.6)
--- NOTE | 2025-05-29 18:10 | PROVIDER PROGRESS NOTE ---
Subjective Prog Note Date Prog Note Date: 05/29/25 Prog Note Time: 17:56 Subjective Pt reports feeling: No change Subjective: Pt feels fine today. Notes she does not feel as sick as she has been in the past when she had endocarditis. Cough improved- sputum no longer bloody. No diarrhea. Good po intake. Current Medications Current Medications Current Medications: Current Medications Generic Name Dose Route Start Last Admin Trade Name Freq PRN Reason Stop Dose Admin Acetaminophen 650 mg 05/25/25 17:32 05/26/25 11:06 Acetaminophen 325 Mg Tablet PO 650 mg Q4HR PRN Administration Pain 1 to 4, or Fever Hydrocodone Bitart/Acetaminophen 1 tab 05/25/25 17:32 Hydrocod/Acetam 5/325 Mg Tablet PO Q4HR PRN Pain 5 to 7 Enoxaparin Sodium 70 mg 05/28/25 09:00 05/29/25 08:19 Enoxaparin 80 Mg/0.8 Ml Syringe SUBQ 70 mg BID YARELI Administration Ergocalciferol 50,000 unit 05/28/25 09:00 05/28/25 08:19 Ergocalciferol 50,000 Unit Capsule PO 50,000 unit Mo YARELI Administration Famotidine 20 mg 05/25/25 21:00 05/29/25 08:18 Famotidine 20 Mg Tablet PO 20 mg BID YARELI Administration Cefazolin Sodium 2 gm/ Sodium 100 mls @ 200 mls/hr 05/27/25 12:00 05/29/25 12:29 Chloride IV Infused Q8H YARELI Infusion Lisinopril 5 mg 05/26/25 09:00 05/29/25 08:18 Lisinopril 5 Mg Tablet PO 5 mg DAILY YARELI Administration Metoprolol Succinate 50 mg 05/25/25 20:00 05/29/25 08:18 Metoprolol Succinate 50 Mg Tablet PO 50 mg Q12H YARELI Administration Oxycodone HCl 10 mg 05/25/25 17:32 Oxycodone 5 Mg Tablet PO Q4HR PRN Pain 8 to 10 Prochlorperazine Edisylate 10 mg 05/25/25 17:32 Prochlorperazine 10 Mg/2 Ml Vial IVP Q6HR PRN Nausea / Vomiting Sertraline HCl 150 mg 05/25/25 20:00 05/28/25 20:38 Sertraline 50 Mg Tablet PO 150 mg Q24H YARELI Administration Sodium Chloride 10 ml 05/25/25 17:32 Sodium Chloride Flush 0.9% 10 Ml Syringe IVP PRN PRN NEEDED PER PROVIDER ORDERS Sodium Chloride 10 ml 05/25/25 17:32 05/29/25 17:21 Sodium Chloride Flush 0.9% 10 Ml Syringe IVP 10 ml 0100,0900,1700 YARELI Administration Topiramate 50 mg 05/25/25 21:00 05/29/25 08:18 Topiramate 25 Mg Tablet PO 50 mg BID YARELI Administration Warfarin Sodium 5 mg 05/26/25 14:00 05/29/25 13:48 Warfarin 5 Mg Tablet PO 5 mg QDWARFARIN YARELI Administration Warfarin Sodium 2.5 mg 05/27/25 14:00 05/28/25 13:58 Warfarin 2.5 Mg Tablet PO 2.5 mg SuMo@1400 YARELI Administration Objective Vital Signs/Intake & Output Reviewed Vital Signs: Yes Vital Signs: Vital Signs x48h Temp Pulse Resp BP Pulse Ox 05/29/25 15:15 36.6 C 69 20 100/65 93 05/29/25 11:40 36.6 C 71 18 98/64 94 Intake & Output: Intake & Output 05/26/25 05/27/25 05/28/25 05/29/25 23:59 23:59 23:59 23:59 Intake Total 2079 2960 / 2960 980 / 980 583 / 583 Balance 2079 2960 / 2960 980 / 980 583 / 583 Objective Comments/Other: young woman sitting in chair, NAD, sclera anicteric, MMM LCTAB, nolabored RRR, S1S2, no edema abd soft, NT, ND, BS+ alert Lab Results 05/28/25 05:27 05/28/25 05:27 Other Labs: Lab Results x24hrs 05/29/25 Range/Units 07:08 PT 27.9 H (9.9-12.6) secs INR 2.5 H (0.8-1.2) Assessment/Plan Problem List (1) Coagulase negative Staphylococcus bacteremia: Impression: 35 y/o F with complex cardiac history of prior endocarditis and on PENVK daily , history of Mechanical valve replaced many years ago and currently on warfarin with target INR of 2.5 -3.5, history of Migraines and had atrial flutter and patient underwent for elective cardioversion at [facility], upon returning from procedure, during mid way drive patient started coughing, and bloody sputum streaks of blood mixed with sputum and produtive cough with low grade temperature, and feeling of fatigue and tiredness. patient do not remember any aspiration event during ANGEL. patient presented to ER and found to have hypoxia and RLL pneumonia. 1. coag negative staph bacteremia, RLL bacterial pneumonia, acute hypoxic respiratory failure: source most likely pna, but with complicated cardiac history, including endocarditis, need to rule out this diagnosis. Clinically improving, afebrile, no leukocytosis. RA at rest, desats to low 80s with exertion. - cefazolin - f/u repeat blood cx for clearance 2. Mechanical MV on warfarin, congenital heart disease: INR goal 2.5-3.5. She has been subtherapeutic on admission, INR 2.5 today. - continue warfarin, daily INR - continue lovenox bridge for 24 hrs of therapeutic INR 3. HTN: - cont home lisinopril, metoprolol- BP on low side this am- monitor 4. depression, anxiety d/o: - cont home zoloft, topamax Dispo plan and GOC: Transfer to for ANGEL and final abx plan determination. ID and cardiology not available at our facility. I spoke with transfer center today- pt awaiting bed availability. Updated pt and mother at bedside.
--- NOTE | 2025-05-29 22:30 | ECHO Report ---
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 A mechanical valve is present in the mitral position. Cannot r/o vegetation, recommend ANGEL if clinically indicated. There is mild to moderate mitral regurgitation. Left Ventricle: Global left ventricular systolic function is normal. Diastolic function could not be accurately assessed due to confounding valvular disease. Right Ventricle: The right ventricle is normal size. The right ventricular systolic function is mildly decreased. A pacer/defibrillator lead is present in the right heart. Aortic Valve: The aortic valve is trileaflet. The aortic valve is normal in structure and function. Cannot exclude aortic valve vegetation. No hemodynamically significant valvular aortic stenosis. Trace to mild aortic regurgitation is present. Mitral Valve: Cannot exclude mitral valve vegetation. There is mild to moderate mitral regurgitation. A mechanical valve is present in the mitral position. Tricuspid Valve: The tricuspid valve leaflets are mildly thickened. Cannot exclude tricuspid valve vegetation. Mild tricuspid regurgitation present. Pulmonic Valve: The pulmonic valve is normal in structure and function. There is no pulmonic valvular stenosis. There is no pulmonic valvular regurgitation. Left Atrium: The left atrium is not well visualized. Right Atrium: Right atrium not well visualized. A pacer/defibrillator wire is present in the right atrium. Pericardium/Pleural Space: There is no pericardial effusion. Left Ventricle IVSd: 0.91 cm LVIDd: 5.7 cm LVPWd: 0.86 cm LVIDs: 4.6 cm Aortic Valve LV V1 max: 109.1 cm/sec LV V1 max P.8 mmHg Ao max P.3 mmHg Ao V2 max: 168.3 cm/sec Mitral Valve MV max P.2 mmHg MV V2 max: 167.7 cm/sec MV mean P.3 mmHg MV V2 mean: 88.1 cm/sec MV V2 VTI: 37.5 cm Tricuspid Valve TR max P.1 mmHg TR max latha: 212.7 cm/sec TV V2 max: 101.5 cm/sec TV max P.1 mmHg TV V2 mean: 69.1 cm/sec TV mean P.12 mmHg TV V2 VTI: 28.2 cm MMode/2D Measurements & Calculations BMI: 26.1 kilograms/m² BSA([facility]): 1.78 m² EF (est.): 28.3 % IVSd: 0.91 cm LVIDd: 5.7 cm LVIDs: 4.6 cm LVPWd: 0.86 cm Doppler Measurements & Calculations Ao max P.3 mmHg Ao V2 max: 168.3 cm/sec LV V1 max: 109.1 cm/sec LV V1 max P.8 mmHg MV max P.2 mmHg MV mean P.3 mmHg MV V2 max: 167.7 cm/sec MV V2 mean: 88.1 cm/sec MV V2 VTI: 37.5 cm TR max P.1 mmHg TR max latha: 212.7 cm/sec TV max P.1 mmHg TV mean P.12 mmHg TV V2 max: 101.5 cm/sec TV V2 mean: 69.1 cm/sec TV V2 VTI: 28.2 cm Other Measurements & Calculations EDV(Teich): 158.4 ml EF(sp-el): 50.0 % EF(Teich): 38.0 % ESV(Teich): 98.2 ml FS: 18.6 % Procedure Notes: A complete two-dimensional transthoracic echocardiogram was performed (2D, M- mode, Doppler and color flow Doppler). Indication: Evaluate for endocarditis. CPT Codes: 00176/03003254: Transthoracic Echo with Spectral and Color Doppler. MD Shira Duval 05/29/2025, 10: 29 PM Ordering Physician: Katharina Ball Referring Physician: Edith Auguste Performed By: Ivelisse Espinoza RDCS
[2025-05-30 05:13] LABS: HCT - HEMATOCRIT 36.4 % (37.0-47.0); HGB - HEMOGLOBIN 11.0 g/dL (12.0-16.0); MEAN PLATELET VOLUME 10.0 fL (7.9-10.8); NRBC ABSOLUTE COUNT (AUTO) 0.00 x10^3/uL; NUCLEATED RED BLOOD CELLS AUTO 0.0 /100WBC; PLT - PLATELET COUNT 316 10^3/uL (130-450); RED CELL DISTRIBUTION WIDTH 15.4 % (12.0-15.0)
[2025-05-30 07:48] LABS: INR 2.5 (0.8-1.2); PT - PROTHROMBIN TIME 27.1 secs (9.9-12.6)
[2025-05-30 19:23] VITALS: BP 109/66; TEMP 96.8; O2SAT 97
--- NOTE | 2025-06-02 10:28 | Discharge Summary ---
Discharge Summary Admit Date: 05/25/25 Discharge Date: 05/30/25 Discharging Provider: Edison Patterson MD DIAGNOSES Admission Diagnoses: RLL pneumonia mechanical MV HTN Discharge Diagnoses with Status of Each Condition: RLL pneumonia, suspect aspiration Coag negative staph bacteremia mechanical MV, congenital heart disease HTN depreession anxiety d/o HPI History of Present Illness: 35 yo F with pmhx of congenital hear disease, mech MV, endocarditis x 2, anxiety, depression, HTN, bronchiectasis, presenting on day of elective cardioversion after developing rigors, sweats, chest discomfort. Started coughing up bloody sputum. In the ED, hypoxic to 84%, placed on 3 L NC. Imaging showed RLL infiltrate, concerning for aspiration. The pt was started on broad spectrum anitbiotics. HOSPITAL COURSE Hospital Course: 1. coag negative staph bacteremia, RLL bacterial pneumonia, acute hypoxic respiratory failure: Blood cx on 05/24 grew staph warneri in 1/4 bottles. Source most likely aspiration pneumonia event after cardioversion. But with complicated cardiac history, including endocarditis, there was a concern for ruling out endocarditis. TTE at our institution was negative for vegetations. [facility] and recommended transfer for ANGEL. The patient defervesced quickly. She was weaned to room air and exertional O2 sat also remained normal on RA. Repeat blood cx on 05/28/25 remained negative. The pt was treated with iv cefazolin based on susceptibility profile. We waited for a bed at for 2-3 days at which point the pt stated she would decline the transfer and wanted to go home. She felt well and not sick like she had during her bouts of endocarditis. I contacted Dr. Reilly from cardiology and he agreed with an outpt antibiotic course and close follow up with cardiology to plan likely ANGEL. The cardiology clinic will contact pt to arrange this appt. I then discussed the case with Dr. Crocker from infectious diseases at . He recommended finishing a 7 day course with oral levofloxacin, which was prescribed on discharge. 2. Mechanical MV on warfarin, congenital heart disease: INR goal 2.5-3.5. She was subtherapeutic on admission with INR 2.0. She was placed on a lovenox bridge. On day of discharge, INR 2.5. Continued home warfarin regimen. 3. HTN: cont home lisinopril, metoprolol. 4. depression, anxiety d/o: cont home zoloft, topamax. ALLERGIES Allergies Allergy/AdvReac Type Severity Reaction Status Date / Time ceftriaxone (From Roceprin) Allergy Hives Verified 05/24/25 19:19 chlorhexidine Allergy Hives Verified 05/24/25 19:19 morphine Allergy Hives Verified 05/24/25 19:19 vancomycin Allergy Hives Verified 05/24/25 19:19 salmeterol (From Serevent) AdvReac Unknown Verified 05/24/25 19:19 MEDICATIONS Ambulatory Orders Medication Instructions Recorded Confirmed lisinopril 5 mg tablet 5 mg PO DAILY 03/25/1805/25 sertraline 100 mg tablet (Zoloft) 150 mg PO Q24H 03/2505/25/25 warfarin 5 mg tablet (Jantoven) 5 mg PO DAILY 03/25/18 05/25/25 ergocalciferol (vitamin D2) 1,250 1,250 mcg PO QWEEK 0 05/25/25 05/25/25 mcg (50,000 unit) capsule (Vitamin D2) famotidine 20 mg tablet (Acid 20 mg PO BID 05/25/25 Controller) metoprolol succinate 50 mg 50 mg PO Q12H 05/25/2504/28 tablet,extended release 24 hr penicillin V potassium 250 mg 250 mg PO BID 05/25/25 0 05/25/25 tablet topiramate 50 mg tablet 50 mg PO BID 05/25/25 levofloxacin 750 mg tablet 750 mg PO Q24H 5 days #5 ta bs 05/30/25 PHYSICAL EXAM AT DISCHARGE Vital Signs: young woman sitting in chair, NAD, sclera anicteric, MMM LCTAB, nolabored RRR, S1S2, no edema abd soft, NT, ND, BS+ alert LABS 05/30/25 04:30 05/28/25 05:27 DIAGNOSTIC IMAGING Diagnostic Imaging Results Comments: CXR, 05/24/25: IMPRESSION: 1.Bibasilar opacities are suspicious for pneumonia, aspiration, or atelectasis. 2.Right-sided cardiac silhouette. Correlate for known situs inversus or dextrocardia versus labeling error. CT angio chest, 05/24/25: IMPRESSION: 1.No acute pulmonary embolus. 2.Right lower lobe opacities are suspicious for pneumonia or aspiration. Bandlike opacities in the left lung have a more chronic appearance and may represent scarring. 3.Heterotaxy syndrome with right-sided heart. TTE, 05/29/25: Interpretation Summary Global left ventricular systolic function is normal at 55 %, The right ventricular systolic function is mildly decreased. A mechanical valve is present in the mitral position. Cannot r/o vegetation, recommend ANGEL if clinically indicated. There is mild to moderate mitral regurgitation. Left Ventricle: Global left ventricular systolic function is normal. Diastolic function could not be accurately assessed due to confounding valvular disease. Right Ventricle: The right ventricle is normal size. The right ventricular systolic function is mildly decreased. A pacer/defibrillator lead is present in the right heart. Aortic Valve: The aortic valve is trileaflet. The aortic valve is normal in structure and function. Cannot exclude aortic valve vegetation. No hemodynamically significant valvular aortic stenosis. Trace to mild aortic regurgitation is present. Mitral Valve: Cannot exclude mitral valve vegetation. There is mild to moderate mitral regurgitation. A mechanical valve is present in the mitral position. Tricuspid Valve: The tricuspid valve leaflets are mildly thickened. Cannot exclude tricuspid valve vegetation. Mild tricuspid regurgitation present. Pulmonic Valve: The pulmonic valve is normal in structure and function. There is no pulmonic valvular stenosis. There is no pulmonic valvular regurgitation. Left Atrium: The left atrium is not well visualized. Right Atrium: Right atrium not well visualized. A pacer/defibrillator wire is present in the right atrium. Pericardium/Pleural Space: There is no pericardial effusion. TIME SPENT Time Spent in Discharge (Minutes): 35 Discharge Plan Discharge Patient Disposition: 01 Home, Self Care Condition: Fair Medically Cleared Date:: 05/30/25 Prescriptions: New levofloxacin 750 mg tablet 750 mg PO Q24H 5 Days Qty: 5 0RF Continued sertraline [Zoloft] 100 MG tablet 150 mg PO Q24H warfarin [Jantoven] 5 MG tablet 5 mg PO DAILY Patient Comments: Takes 5mg Wednesday thru Wednesday. Takes 7.5mg on Wednesday and Wednesday. lisinopril 5 MG tablet 5 mg PO DAILY metoprolol succinate 50 mg tablet extended release 24 hr 50 mg PO Q12H topiramate 50 mg tablet 50 mg PO BID penicillin V potassium 250 mg tablet 250 mg PO BID Patient Comments: TAKE 1 TABLET BY MOUTH TWICE DAILY famotidine [Acid Controller] 20 mg tablet 20 mg PO BID ergocalciferol (vitamin D2) [Vitamin D2] 1,250 mcg (50,000 unit) capsule 1,250 mcg PO QWEEK Activity Restrictions: Activity as Tolerated Diet: Regular Health Concerns: Contact your primary care provider or return to the hospital if you have fever, difficulty breathing, low oxygen level, bleeding, rash, persistent diarrhea, or for any other concerns. You have been prescribed an antibiotic for your bloodstream infection and pneumonia. Your cardiology team at will reach out to you to schedule close follow-up and any necessary testing, which will likely include a ANGEL (transesophageal echocardiogram) to rule out infection on the heart valve. Print Language: Greenlandic Patient Instructions: Pneumonia Community Acquired Stand Alone Forms: PCP List Vitals documented within 30 minutes of discharge?: Yes
== END 2025-05-30 19:15 | disposition home or self-care (01) | DRG 177 ==
LOC: ED 19:05 → MS3 05-25 16:24
PROVIDERS: ADMIT Family Medicine; ATTEND Family Medicine